=== PATIENT | female | born 1955 | race Caucasian/White ===

== ENCOUNTER 2019-02-19 14:38 | Inpatient (IN) | payer OTHER, MEDICAID | END 2019-02-23 17:00 | disposition home or self-care (01) | LOC: ER 14:38 → TELE 17:52 → TELE-WESTW 20:25 | DX: I48.0 Paroxysmal atrial fibrillation (principal); E44.1 Mild protein-calorie malnutrition; I10 Essential (primary) hypertension; J44.9 Chronic obstructive pulmonary disease, unspecified; R74.8 Abnormal levels of other serum enzymes; K40.90 Unilateral inguinal hernia, without obstruction or gangrene, not specified as recurrent; G89.29 Other chronic pain; M54.5 Low back pain; E03.9 Hypothyroidism, unspecified; Z79.891 Long term (current) use of opiate analgesic; D64.9 Anemia, unspecified ==

== ENCOUNTER 2019-08-07 20:14 | Inpatient (IN) | payer OTHER, MEDICAID ==
[~2019-08-07] VITALS: Ht 160 cm; Wt 22.6 kg
[~2019-08-07 20:14] MED LIST: ALBUAER3 IN; ALEN70TA2 PO; ATO40T PO; BREX1TAB4 PO; CIPR-217 PO; CYCL5TAB PO; ESCI20TA PO; FLUT250M2 INH; GABA-339 PO; HYDR-531 PO; HYDR12.56 PO; IMI25T PO; LEVO50TA7 PO; LISI-646 PO; MELO1TAB56 PO; MONT10TA34 PO; OXYB15TA12 PO; ROPI2TAB31 PO; TIOTCAP IN; TRAZ100T2 PO
[2019-08-07] MEDS ORDERED: ONDANSETRON HCL 4 MG/2 ML VIAL IV ONE (21:00)
[2019-08-07] MEDS ORDERED: MORPHINE SULFATE 4 MG/ML SYR/VIAL IV ONE (21:00)
[2019-08-07 21:14] LABS: Basophils # (auto) 0.1 uL; Basophils % (auto) 0.9 % (0.0-2.0); Eosinophils # (auto) 0.1 uL; Eosinophils % (auto) 0.9 % (0.0-7.0); Hematocrit 46.7 % (36.0-46.0); Hemoglobin 15.4 g/dL (12.2-16.2); Lymphocytes # (auto) 2.1 uL; Lymphocytes % (auto) 13.3 % (10.0-50.0); Mean Corpuscular Hemoglobin 27.4 pg (28.0-32.0); Mean Corpuscular Volume 83.2 fL (80.0-100.0); Monocytes # (auto) 1.2 uL; Monocytes % (auto) 7.5 % (0.0-12.0); Neutrophils # (auto) 12.4 uL; Neutrophils % (auto) 77.4 % (37.0-80.0); Nucleated Red Blood Cells % 0.1 %; Platelet Count (auto) 431 10^3/uL (140-450); Red Blood Cells 5.61 10^6/uL (4.0-5.20); Red Cell Distribution Width 17.9 % (11.8-14.3)
[2019-08-07 21:33] LABS: Albumin 3.7 g/dL (3.4-5.0); Potassium 3.7 mmol/L (3.5-5.1)
[2019-08-07 21:37] LABS: BUN/Creatinine Ratio 21.4; Bilirubin, Total 0.6 mg/dL (0.2-1.0)
[2019-08-07] MEDS ORDERED: SODIUM CHLORIDE 0.9% 1,000 ML IV SCH (22:31)
[2019-08-07] MEDS ORDERED: cefTRIAXone 1GM/50ML D5W 50 ML IV ONE (22:45)
[2019-08-07] MEDS ORDERED: FAMOTIDINE (10MG/ML) 2ML VL IV ONE (22:45)
[2019-08-07] MEDS ORDERED: MORPHINE SULF INJ 2 MG/ML SYRINGE 1ML IV PRN (22:45)
[2019-08-07] MEDS ORDERED: ALBUTEROL SULF 2.5 MG/0.5ML(0.5%) NEB SOLN NEB PRN (22:45)
[2019-08-07] MEDS ORDERED: ONDANSETRON HCL 4 MG/2 ML VIAL IV PRN (22:45)
[2019-08-07] MEDS ORDERED: NITROGLYCERIN 0.4 MG SL TAB SL PRN (22:45)
[2019-08-07 23:28] LABS: INR 0.98 (0.9-1.15); Partial Thromboplastin Time 26.1 sec (23.64-32.05)
--- NOTE | 2019-08-07 23:52 | NUR ---
Respiratory note: PT SEEN DOWN IN ER AT THIS TIME ON RA WITH NO DIFFICULTY IN BREATHING. PT AWAKE AND ALERT. SPO2 95%, HR 87, RR 22. BS CLR/DIM T/O. NO PRN TX INDICATED AT THIS TIME. PT AWARE TO CALL FOR TX'S IF SOB/WHEEZING.
[2019-08-08] VITALS (9 sets, daily range): BP systolic 122–147; BP diastolic 57–78
[2019-08-08] MEDS ORDERED: BENZOCAINE (DENTAL) 20 % SPRAY 60ML MT ONE ×2 (00:09→00:15)
[2019-08-08 00:19] LABS: Urine Bacteria MANY /hpf (None Seen); Urine Blood Negative /uL (Negative); Urine Mucus FEW (None Seen); Urine Specific Gravity 1.027 (1.001-1.035); Urine WBC 63 /hpf (0 - 5)
[2019-08-08] MEDS: MORPHINE SULFATE 4 MG/ML SYR/VIAL IV PRN ×2 (01:04→21:25)
--- NOTE | 2019-08-08 01:25 | NUR ---
ADMITTED PATIENT FROM THE ER, AAOX4. NO DISTRESS NOTED. INTRODUCED MYSELF TO THE PATIENT. ORIENTATION DONE. DENIES ANY PAIN NOW. ABDOMEN IS TENDER. MILD DISTENTION NOTED. RUEDA IS INTACT. NGT IS INTACT. ROUTINE ADMISSION DONE. POCS DISCUSSED WITH PATIENT AND SHOWED UNDERSTANDING. BED KEPT ON LOWEST POSITION. SIDE RAILS UP. CALL LIGHT/ TABLE IN REACH. KEPT COMFORTABLE.
--- NOTE | 2019-08-08 03:00 | NUR ---
PATIENT ACCIDENTALLY PULLED OUT HER NG TUBE IN HER SLEEP. ADVISED PATIENT TO REINSERT TUBE, BUT REFUSED. SHE SAID, SHE WILL WAIT FOR THE GASTRO GRAFFIN THIS AM AND SEE IF THE SBO RESOLVES, AND IF NOT TO ALLOW US TO REINSERT THE NG TUBE. CONSEQUENCES EXPLAINED, BUT STILL REFUSE. WILL NOTIFY
--- NOTE | 2019-08-08 05:15 | NUR ---
SPOKE WITH PATIENT, AGAIN REGARDING NGT INSERTION, BUT REFUSED AND SHE SAID TO SPEAK WITH THE MD FIRST AFTER THE ABDOMINAL SERIES THIS AM. DENIES NAUSEA/ VOMITING.
[2019-08-08 06:04] LABS: Basophils # (auto) 0 uL; Basophils % (auto) 0.2 % (0.0-2.0); Eosinophils # (auto) 0.1 uL; Eosinophils % (auto) 0.5 % (0.0-7.0); Hematocrit 39.5 % (36.0-46.0); Hemoglobin 12.9 g/dL (12.2-16.2); Lymphocytes # (auto) 1.1 uL; Lymphocytes % (auto) 6.9 % (10.0-50.0); Mean Corpuscular Hemoglobin 27.4 pg (28.0-32.0); Mean Corpuscular Hgb Conc. 32.7 g/dL (32.0-36.0); Mean Corpuscular Volume 83.8 fL (80.0-100.0); Monocytes # (auto) 1.7 uL; Monocytes % (auto) 10.4 % (0.0-12.0); Neutrophils # (auto) 13.4 uL; Platelet Count (auto) 346 10^3/uL (140-450); Red Blood Cells 4.71 10^6/uL (4.0-5.20); Red Cell Distribution Width 17.7 % (11.8-14.3); White Blood Cell 16.3 10^3/uL (4.4-10.8)
--- NOTE | 2019-08-08 06:18 | NUR ---
ON BED, AWAKE. STABLE. NO DISTRESS NOTED. FOR MORE CARE AND MANAGEMENT.
[2019-08-08 06:20] LABS: BUN/Creatinine Ratio 35.7; Calcium 8.4 mg/dL (8.5-10.1); Potassium 3.4 mmol/L (3.5-5.1)
--- NOTE | 2019-08-08 07:30 | NUR ---
Opening Shift Note Assumed care of patient. Pt resting in bed with even and non-labored respirations. Bed locked and in lowest position. will continue to monitor for changes Q1hr and PRN.
[2019-08-08] MEDS: FUROSEMIDE 20 MG/2 ML VIAL IV SCH (09:24)
[2019-08-08] MEDS: cefTRIAXone 1GM/50ML D5W 50 ML IV SCH (09:24)
[2019-08-08] MEDS: FAMOTIDINE (10MG/ML) 2ML VL IV SCH (09:24)
--- NOTE | 2019-08-08 10:15 | NUR ---
PT OFF UNIT FOR PROCEDURE
[2019-08-08] MEDS ORDERED: GASTROGRAFIN 120 ML SOL ONE (10:35)
--- NOTE | 2019-08-08 11:41 | NUR ---
PT ARRIVAL BACK TO UNIT
--- NOTE | 2019-08-08 11:55 | NUR ---
Respiratory note: PT ASSESSED FOR PRN MED NEB TX. NO SOB NOTED. PT IS BREATHING COMFORTABLY ON 2L NC. HR 69, RR 14, POX 100%. B/S ARE CLEAR AND DECREASED THROUGHOUT.
[2019-08-08] MEDS ORDERED: POTASSIUM CHL 20MEQ/100ML 100 ML IV ONE (13:30)
[2019-08-08] MEDS ORDERED: ALBUTEROL SULF 2.5 MG/0.5ML(0.5%) NEB SOLN NEB PRN (13:30)
[2019-08-08] MEDS ORDERED: IPRATROPIUM BROM 0.5 MG/2.5ML INH SOL NEB PRN (13:30)
[2019-08-08] MEDS: SODIUM CHLORIDE 0.9% 1,000 ML IV SCH (14:05)
--- NOTE | 2019-08-08 14:15 | NUR ---
RONDA GUERRIER RE: NPO STATUS AND PT REFUSING IV POTASSIUM. AWAITING CALL BACK.
--- NOTE | 2019-08-08 16:52 | NUR ---
RONDA GUERRIER RE: NPO STATUS AND PT REFUSING IV POTASSIUM. AWAITING CALL BACK.
--- NOTE | 2019-08-08 18:45 | NUR ---
ON-CALL HOSPITALIST RETURNED PAGE RE: POTASSIUM. NEW ORDERS RECEIVED.
[2019-08-08] MEDS ORDERED: POTASSIUM CHL 20 Meq TABLET PO ONE (19:00)
--- NOTE | 2019-08-08 19:30 | NUR ---
Opening Shift Note Assumed care of patient, awake and alert. No S/S of distress/SOB or pain. Bed side commode within reach. RFA IV non patent, patient states discomfort, mild swelling localized to site noted, will D/C IV. Instructed on POC and to call for assist PRN, will continue to monitor for changes Q1hr and PRN.
--- NOTE | 2019-08-08 20:16 | NUR ---
IV insertion IV access obtained, via clean sterile technique by inserting 22 gauge catheter at right hand after 1 attempt. IV secured properly. No trauma to site. Patient tolerated well. Normal saline running at 65mls/hr as per order.
--- NOTE | 2019-08-08 20:17 | NUR ---
IV removal RFA IV DC'd with clean sterile technique, catheter fully intact. Pressure dressing applied to site. Patient tolerated well.
--- NOTE | 2019-08-08 20:20 | NUR ---
PATIENT VERBALIZES ABDOMINAL PAIN, DESCRIBED SHARP AND NON RADIATING, RATES IT 7/10 ON PAIN SCALE. WILL ASSESS AND MEDICATE PER ORDER.
--- NOTE | 2019-08-08 20:35 | NUR ---
PATIENT INCONTINENT OF BOWEL PATIENT STATES "I CAN WALK AND GET UP TO COMMODE JUST FINE, BUT CANT SIT THERE TOO LONG, AND ITS HARD WITH ALL THESE WIRES ON ME". PATIENT ENCOURAGED TO CALL FOR ASSISTANCE SOON URGE STARTS FOR BED SIDE COMMODE ASSISTANCE. PATIENT EDUCATED ON SKIN BREAKDOWN PREVENTION. PATIENT VERBALIZES UNDERSTANDING. PATIENT AMBULATED TO RESTROOM WITH STAND BY ASSIST TO CLEAN SELF. BED LINENS CHANGED. WILL CONTINUE TO MONITOR
--- NOTE | 2019-08-09 02:00 | NUR ---
PATIENT C/O IV SITE DISCOMFORT. MILD SWELLING NOTED. FLUIDS STOPPED. WILL DC IV/ ELEVATE EXTREMITY.
--- NOTE | 2019-08-09 02:10 | NUR ---
IV insertion IV access obtained, via clean sterile technique by inserting 22 gauge catheter at RIGHT FOREARM. IV secured properly. No trauma to site. Patient tolerated well.
[2019-08-09] MEDS: MORPHINE SULFATE 4 MG/ML SYR/VIAL IV PRN ×4 (02:16→21:39)
--- NOTE | 2019-08-09 02:20 | NUR ---
PATIENT REFUSES TO BE RECONNECTED TO IV FLUIDS. STATES SHE FEELS IV DISCOMFORT. IV SITE ASSESSED, FLUSHED WITH NORMAL SALINE. IV PATENT, NO SWELLING NOTED, SITE INTACT. PATIENT EDUCATED ON NEED OF IV HYDRATION. PATIENT CONTINUES TO REFUSE FLUIDS. WILL TRY AGAIN LATER. FLUIDS PAUSED AT THIS MOMENT.
--- NOTE | 2019-08-09 02:43 | NUR ---
A FIB RVR PATIENTS POCKET MAKER READING A FIB WITH VENTRICULAR RATE 128BPM WILL ASSESS PATIENT, EKG, WILL CALL HOSPITALIST
--- NOTE | 2019-08-09 02:45 | NUR ---
PATIENT RESTING IN BED COMFORTABLY, DENIES ANY CHEST PAIN/PALPITATIONS/DISTRESS. VITAL SIGNS: 148/83 BP, 127HR, SPO2 95% ON RA, RR 16BPM EKG COMPLETED AFIB SUSTAINING
--- NOTE | 2019-08-09 03:15 | NUR ---
HOSPITALIST MIKEY AWARE OF RHYTHM EKG REVIEWED AND SIGNED NEW ORDER RECEIVED, READ BACK AND VERIFIED. WILL ENTER AND IMPLEMENT AFIB SUSTAINED AT THIS TIME WITH HR 120BPM
--- NOTE | 2019-08-09 03:30 | NUR ---
PATIENT BACK TO SR 90BPM WILL HOLD CARDIZEM AT THIS TIME
[2019-08-09] MEDS ORDERED: DILTIAZEM HCL 25 MG/5 ML VIAL IV ONE (04:00)
[2019-08-09 04:57] LABS: Basophils # (auto) 0.1 uL; Basophils % (auto) 0.6 % (0.0-2.0); Eosinophils # (auto) 0.3 uL; Hematocrit 33.9 % (36.0-46.0); Hemoglobin 11.2 g/dL (12.2-16.2); Lymphocytes # (auto) 2.3 uL; Lymphocytes % (auto) 26.8 % (10.0-50.0); Mean Corpuscular Hemoglobin 27.7 pg (28.0-32.0); Mean Corpuscular Hgb Conc. 33.1 g/dL (32.0-36.0); Mean Corpuscular Volume 83.7 fL (80.0-100.0); Monocytes # (auto) 0.7 uL; Monocytes % (auto) 8.3 % (0.0-12.0); Neutrophils # (auto) 5.2 uL; Neutrophils % (auto) 61.3 % (37.0-80.0); Platelet Count (auto) 282 10^3/uL (140-450); Red Blood Cells 4.05 10^6/uL (4.0-5.20); Red Cell Distribution Width 17.9 % (11.8-14.3); White Blood Cell 8.5 10^3/uL (4.4-10.8)
[2019-08-09 05:00] VITALS: BP 152/79
[2019-08-09 05:17] LABS: BUN/Creatinine Ratio 31.5; Calcium 7.9 mg/dL (8.5-10.1); Magnesium 1.8 mg/dL (1.6-2.6); Potassium 3.5 mmol/L (3.5-5.1)
--- NOTE | 2019-08-09 06:00 | NUR ---
PATIENT CONTINUES TO REFUSE IV FLUIDS AT THIS TIME.
[2019-08-09] MEDS: SODIUM CHLORIDE 0.9% 1,000 ML IV SCH ×2 (06:01→12:46)
--- NOTE | 2019-08-09 06:36 | NUR ---
PATIENT RESTING IN BED COMFORTABLY, EVEN AND UNLABORED RESPIRATIONS NOTED, NO S/S OF PAIN/ DISTRESS. CALL LIGHT WITHIN REACH.
--- NOTE | 2019-08-09 07:45 | NUR ---
Patient in bed, awake, oriented x4, no acute distress noted. On Delarosa catheter draining light eliz urine. With bedside commode.
--- NOTE | 2019-08-09 08:31 | NUR ---
Patient stated her back, neck, stomach pain level at 7/10 at this time. Morphine Sulf Inj 2 mg given for pain as ordered.
[2019-08-09] MEDS: cefTRIAXone 1GM/50ML D5W 50 ML IV SCH (08:32)
[2019-08-09 09:00] VITALS: BP 155/74
--- NOTE | 2019-08-09 10:30 | NUR ---
Midline Placement: Patient educated on need for midline placement. All risks and benefits explained and all questions and concerns addresses prior to procedure. 18g/10cm midline inserted via RIGHT BASILIC vein using Ultrasound. Sterile technique utilized. Blood return obtained from SINGLE lumen and flushed easily with NS using proper technique. Midline secured with saline lock; biodisc and occlusive dressing applied. Primary RN notified. Midline lot # [id number] .
--- NOTE | 2019-08-09 10:50 | NUR ---
Respiratory note: PT ASSESSED FOR PRN. PT AWAKE, ALERT AND RESPONSIVE. NO DISTRESS, SOB OR WHEEZE AT THIS TIME. PT SP02 95% ON ROOM AIR. NO TREATMENT INDICATED AT THIS TIME. TOLD PT IF BECOMES SOB OR HAS A WHEEZE USE CALL LIGHT AND I WILL BE PAGED TO HER ROOM.
--- NOTE | 2019-08-09 11:02 | NUR ---
Dr. Castro came over.
--- NOTE | 2019-08-09 11:15 | NUR ---
Dr. Castro at bedside. ordered Clear Liquid Diet. Patient has pending Surgical Consult with Jamila Livingstno
[2019-08-09] MEDS: FAMOTIDINE (10MG/ML) 2ML VL IV SCH (11:31)
[2019-08-09] MEDS: FUROSEMIDE 20 MG/2 ML VIAL IV SCH (11:31)
--- NOTE | 2019-08-09 12:30 | NUR ---
Patient's sister at bedside.
[2019-08-09] MEDS ORDERED: LISINOPRIL 20 MG TAB PO ONE (12:45)
[2019-08-09] MEDS ORDERED: MAGNESIUM SULFATE 1GM/100ML 100 ML IV ONE (12:45)
[2019-08-09] MEDS ORDERED: POTASSIUM CHL 20 Meq TABLET PO ONE (12:45)
[2019-08-09 13:00] VITALS: BP 147/75
--- NOTE | 2019-08-09 15:17 | NUR ---
Surgical Consult called in again for Jamila Livingston Waiting for MD to come over.
[2019-08-09 17:00] VITALS: BP 149/69
--- NOTE | 2019-08-09 17:33 | NUR ---
Patient stared her back pain level at 05/09 at this time. Morphine Sulf Inj 2 mg given for pain as ordered. Addendum: 08/09/19 at 1752 by Cynthia Hines RN stated
--- NOTE | 2019-08-09 19:34 | NUR ---
Opening Shift Note Assumed care of patient, awake and alert oriented x4. No S/S of distress/SOB noted. Bed is in lowest locked position with bed rails up x2 and call light is within reach of the patient. Instructed on POC and to call for assist PRN.
--- NOTE | 2019-08-09 19:57 | NUR ---
Respiratory note: ASSESSMENT FOR PRN MED NEB TX. PT PRESENTING NO DISTRESS AT THIS TIME. HR 75, SPO2 96% ON ROOM AIR, RR 18 B/S DIMINISHED. MED NEB TX NOT INDICATED AT THIS TIME. PT AWARE TO HAVE RT PAGED IF MED NEB TX IS NEEDED, WILL CONTINUE TO MONITOR.
[2019-08-09 22:00] VITALS: BP 139/71
--- NOTE | 2019-08-09 22:22 | NUR ---
DR. TEMPLE AT THE BEDSIDE SPEAKING TO PATIENT.
--- NOTE | 2019-08-09 22:30 | NUR ---
DR TEMPLE CLEARED PATIENT FOR DC. WANTS TO ADVANCE PATIENTS DIET TOLERATED. TO PLACE ORDERS.
--- NOTE | 2019-08-10 01:20 | NUR ---
SWOLLEN UPPER RIGHT EXTREMITY: Patient made this RN aware at this time that upper right extremity is painful to the touch and swollen where right upper arm midline is placed. Disconnected patient from iv fluids. After assessment patients right upper arm is more swollen than the left and tender to the touch. To call and notify hospitalist.
--- NOTE | 2019-08-10 01:25 | NUR ---
Paged hospitalist: Paged hospitalist at the time to update about patients swollen right upper extremity where midline is. Waiting for call back.
--- NOTE | 2019-08-10 01:26 | NUR ---
Patient refusing new IV: Educated patient that we cannot use Midline at this time due to symptoms and that a new IV must be started. Patient refused new Iv stating "No I dont want to be poked anymore.." Educated patient about the need to have an IV for emergency medication access and that pain medications cannot be administered with no working IV access. Patient verbalized understanding.
--- NOTE | 2019-08-10 01:27 | NUR ---
Hospitalist called back: Hospitalist Emil called back and updated him about patients swollen upper arm at the site of the midline. Ordered for an X ray of the upper arm to assess midline placement.
--- NOTE | 2019-08-10 01:30 | NUR ---
CALLED RADIOLOGY: Called radiology regarding stat order for x ray of right upper extremity to assess midline placement. Radiology stated that veins are not visualized in x-rays and that it would be seen better if an ultrasound was done to see veins. To call hospitalist.
--- NOTE | 2019-08-10 01:35 | NUR ---
Hospitalist called back: Hospitalist Emil informed about what radiology stated about x-ray of upper extremity and how veins cannot be visualized with x-ray. Ordered ultra sound of right upper extremity and to monitor the patient. To place orders and call radiology.
--- NOTE | 2019-08-10 01:40 | NUR ---
Called Radiology: Updated them of stat order for ultrasound for the patients right upper extremity. Stated that edger technician is not available at this time, only industrial relations worker extrusion technician. Connected through PBX and spoke with industrial relations worker radiologist extrusion technician.
[2019-08-10 05:31] VITALS: BP 144/72
[2019-08-10 07:00] LABS: Basophils # (auto) 0.1 uL; Basophils % (auto) 0.9 % (0.0-2.0); Eosinophils # (auto) 0.3 uL; Eosinophils % (auto) 3.9 % (0.0-7.0); Hematocrit 39.8 % (36.0-46.0); Lymphocytes % (auto) 24.8 % (10.0-50.0); Mean Corpuscular Hemoglobin 27.5 pg (28.0-32.0); Mean Corpuscular Hgb Conc. 32.8 g/dL (32.0-36.0); Mean Corpuscular Volume 84.1 fL (80.0-100.0); Monocytes # (auto) 0.9 uL; Monocytes % (auto) 11.9 % (0.0-12.0); Neutrophils # (auto) 4.6 uL; Neutrophils % (auto) 58.5 % (37.0-80.0); Platelet Count (auto) 313 10^3/uL (140-450); Red Blood Cells 4.74 10^6/uL (4.0-5.20); Red Cell Distribution Width 17.5 % (11.8-14.3); White Blood Cell 7.9 10^3/uL (4.4-10.8)
[2019-08-10 07:16] LABS: BUN/Creatinine Ratio 9.7; Calcium 8.7 mg/dL (8.5-10.1); Magnesium 2.4 mg/dL (1.6-2.6); Potassium 3.7 mmol/L (3.5-5.1)
--- NOTE | 2019-08-10 07:30 | NUR ---
CLOSING NOTE: Patient is resting in bed with breaths even and unlabored. No s/s of distress sob noted. Right upper extremity swelling down and soft to touch. Ultrasound of right upper extremity negative for DTV. Endorsed care to day shift nurse.
[2019-08-10] MEDS: SODIUM CHLORIDE 0.9% 1,000 ML IV SCH (08:45)
[2019-08-10] MEDS: cefTRIAXone 1GM/50ML D5W 50 ML IV SCH ×2 (09:00→10:26)
[2019-08-10 09:25] VITALS: BP 153/71
--- NOTE | 2019-08-10 10:25 | NUR ---
Dr. Castro at bedside. ordered Soft Diet 2 GM Na, when patient tolerates for lunch, patient will be discharged home today.
[2019-08-10] MEDS: FUROSEMIDE 20 MG/2 ML VIAL IV SCH (10:26)
[2019-08-10] MEDS: FAMOTIDINE (10MG/ML) 2ML VL IV SCH (10:26)
--- NOTE | 2019-08-10 10:33 | NUR ---
Respiratory note: ASSESSED PT FOR PRN MEDNEB TX. HR 88, RR 16, POX 98% ON ROOM AIR. BREATH SOUNDS CLEAR THROUGHOUT. NO S/S OF RESPIRATORY DISTRESS. MEDNEB TX NOT INDICATED AT THIS TIME. ADVISED PT TO CALL FOR RT IF NEEDED.
--- NOTE | 2019-08-10 11:30 | NUR ---
Delarosa catheter removed. About 850 ml of clear, yellowish urine collected from the Delarosa catheter.
[2019-08-10] MEDS ORDERED: CIPR-217 PO (12:51)
--- NOTE | 2019-08-10 13:55 | NUR ---
Dr. Castro called back. ordered Cipro 500 mg PO one time dose. Dr. Castro made aware patient's heart rate goes into 150s to 160s. Patient had AICD placement history.
[2019-08-10 14:10] VITALS: BP 137/60
[2019-08-10] MEDS ORDERED: CIPROFLOXACIN HCL 500 MG TAB PO ONE (14:15)
--- NOTE | 2019-08-10 14:15 | NUR ---
Patient stated she will wait for her [id number] to pick her up at the [facility].
--- NOTE | 2019-08-10 14:48 | NUR ---
Patient came from the bathroom, stated she had a bowel movement.
--- NOTE | 2019-08-10 15:10 | NUR ---
Discharge instructions given as ordered. Encourage to follow up with PMD as instructed. All questions and concerns addressed. Patient verbalized understanding. Medication reconciliation form completed and copy given to patient. IV removed with catheter intact, pressure dressing applied, Delarosa catheter removed. Telemetry unit returned to ICU. Patient taken to vehicle via wheelchair with all personal belongings, accompanied by staff. No distress noted at time of departure.
== END 2019-08-10 15:05 | disposition home or self-care (01) | DRG 872 ==
LOC: ER 20:26 → TELE 20:27 → TELE-WESTW 23:32
PROVIDERS: ADMIT Nurse Practitioner; ATTEND Internal Medicine
DX: A41.9 Sepsis, unspecified organism (principal); N39.0 Urinary tract infection, site not specified; I50.22 Chronic systolic (congestive) heart failure; R18.8 Other ascites; K40.30 Unilateral inguinal hernia, with obstruction, without gangrene, not specified as recurrent; K80.20 Calculus of gallbladder without cholecystitis without obstruction; J44.9 Chronic obstructive pulmonary disease, unspecified; E78.5 Hyperlipidemia, unspecified; I25.10 Atherosclerotic heart disease of native coronary artery without angina pectoris; I11.0 Hypertensive heart disease with heart failure; I48.0 Paroxysmal atrial fibrillation; F17.210 Nicotine dependence, cigarettes, uncomplicated; E03.9 Hypothyroidism, unspecified; K57.30 Diverticulosis of large intestine without perforation or abscess without bleeding; Z88.6 Allergy status to analgesic agent; Z90.710 Acquired absence of both cervix and uterus; Z95.810 Presence of automatic (implantable) cardiac defibrillator; Z98.51 Tubal ligation status; Z82.49 Family history of ischemic heart disease and other diseases of the circulatory system; Z83.3 Family history of diabetes mellitus; Z80.1 Family history of malignant neoplasm of trachea, bronchus and lung; Z80.8 Family history of malignant neoplasm of other organs or systems; Z79.899 Other long term (current) drug therapy
CPT/HCPCS: 36415; 74176; 74250; 80048; 80053; 81001; 83690; 83735; 85025; 85610; 85730; 87040; 87086; 87088; 87186; 93005; 93971; 94761; 96361; 96365; 96375; G0378; J0696; J2405; J3480; J3490

== ENCOUNTER 2019-09-15 15:27 | Emergency (ER) | payer OTHER, MEDICAID ==
[~2019-09-15] VITALS: Ht 154.9 cm; Wt 38.6 kg
[2019-09-15 16:04] LABS: Basophils # (auto) 0.1 uL; Eosinophils # (auto) 0.1 uL; Eosinophils % (auto) 1.2 % (0.0-7.0); Hematocrit 36.9 % (36.0-46.0); Hemoglobin 12.2 g/dL (12.2-16.2); Lymphocytes # (auto) 1.9 uL; Mean Corpuscular Hemoglobin 27.2 pg (28.0-32.0); Mean Corpuscular Hgb Conc. 33.1 g/dL (32.0-36.0); Mean Corpuscular Volume 82.2 fL (80.0-100.0); Monocytes % (auto) 12.1 % (0.0-12.0); Neutrophils # (auto) 5.3 uL; Neutrophils % (auto) 62.7 % (37.0-80.0); Nucleated Red Blood Cells % 0.1 %; Platelet Count (auto) 353 10^3/uL (140-450); Red Blood Cells 4.49 10^6/uL (4.0-5.20); Red Cell Distribution Width 17.6 % (11.8-14.3); White Blood Cell 8.4 10^3/uL (4.4-10.8)
[2019-09-15 16:20] LABS: Albumin 2.7 g/dL (3.4-5.0); Anion Gap 5 (5-15); Blood Urea Nitrogen 20 mg/dL (7-18); Calcium 8.3 mg/dL (8.5-10.1); Carbon Dioxide 30 mmol/L (21-32); Chloride 98 mmol/L (98-107); Glucose 116 mg/dL (74-106); Potassium 3.2 mmol/L (3.5-5.1); Sodium 133 mmol/L (136-145)
[2019-09-15 16:22] LABS: Alanine Aminotransferase 22 U/L (13-56); Aspartate Aminotransferase 26 U/L (15-37); BUN/Creatinine Ratio 19.2; GFR African American 69 mL/min; GFR Non-African American 57 mL/min
[2019-09-15 16:27] LABS: Alkaline Phosphatase 84 U/L (45-117); Bilirubin, Total 0.2 mg/dL (0.2-1.0); Total Protein 6.3 g/dL (6.4-8.2)
[2019-09-15] MEDS ORDERED: SODIUM CHLORIDE 0.9% 1,000 ML IV ONE ×2 (16:50)
[2019-09-15 18:39] VITALS: BP 114/55
== END 2019-09-15 18:49 | disposition home or self-care (01) ==
LOC: EDBD 15:27 → ER 15:27
DX: K80.20 Calculus of gallbladder without cholecystitis without obstruction (principal); E44.0 Moderate protein-calorie malnutrition; I12.9 Hypertensive chronic kidney disease with stage 1 through stage 4 chronic kidney disease, or unspecified chronic kidney disease; N18.9 Chronic kidney disease, unspecified; J44.9 Chronic obstructive pulmonary disease, unspecified; E78.5 Hyperlipidemia, unspecified; F17.210 Nicotine dependence, cigarettes, uncomplicated; I25.2 Old myocardial infarction; Z98.51 Tubal ligation status; Z90.710 Acquired absence of both cervix and uterus; Z95.0 Presence of cardiac pacemaker; Z68.1 Body mass index [BMI] 19.9 or less, adult; Z88.6 Allergy status to analgesic agent; Z79.899 Other long term (current) drug therapy
CPT/HCPCS: 36415; 74176; 80053; 84484; 85025; 93005

== ENCOUNTER → 2019-12-26 | Outpatient (CLI) | payer OTHER, MEDICAID ==
[~2019-12-26] MED LIST changes: -CIPR-217 PO; +CIPR500T4 PO; -TRAZ100T2 PO; +TRAZ100T3 PO
[2019-12-26 08:22] LABS: Basophils # (auto) 0.1 uL; Eosinophils # (auto) 0.1 uL; Lymphocytes # (auto) 1.7 uL; Monocytes # (auto) 0.8 uL; Neutrophils # (auto) 4.4 uL
[2019-12-26 08:23] LABS: Basophils % (auto) 1.2 % (0.0-2.0); Hematocrit 39.8 % (36.0-46.0); Hemoglobin 13.4 g/dL (12.2-16.2); Lymphocytes % (auto) 24.5 % (10.0-50.0); Mean Corpuscular Hemoglobin 27.5 pg (28.0-32.0); Mean Corpuscular Hgb Conc. 33.6 g/dL (32.0-36.0); Mean Corpuscular Volume 81.9 fL (80.0-100.0); Neutrophils % (auto) 62.3 % (37.0-80.0); Platelet Count (auto) 303 10^3/uL (140-450); Red Blood Cells 4.86 10^6/uL (4.0-5.20); White Blood Cell 7.1 10^3/uL (4.4-10.8)
[2019-12-26 08:39] LABS: Albumin 3.4 g/dL (3.4-5.0); Calcium 9.2 mg/dL (8.5-10.1); Potassium 4.1 mmol/L (3.5-5.1)
[2019-12-26 08:43] LABS: Urine Bacteria FEW /hpf (None Seen); Urine Blood Negative /uL (Negative); Urine Specific Gravity 1.011 (1.001-1.035); Urine WBC 3 /hpf (0 - 5)
[2019-12-26 08:45] LABS: Bilirubin, Total 0.4 mg/dL (0.2-1.0); Total Protein 7.2 g/dL (6.4-8.2)
== END | disposition home or self-care (01) ==
LOC: LAB 07:59
PROVIDERS: ATTEND Physician Assistant
DX: I11.0 Hypertensive heart disease with heart failure (principal); I50.9 Heart failure, unspecified; E03.9 Hypothyroidism, unspecified; M79.7 Fibromyalgia; Z78.9 Other specified health status
CPT/HCPCS: 36415; 80053; 80061; 81001; 84443; 85025

== ENCOUNTER → 2020-02-28 | Outpatient (CLI) | payer OTHER, MEDICAID | END | disposition home or self-care (01) | LOC: LAB 16:00 | PROVIDERS: ATTEND Urology | DX: N39.0 Urinary tract infection, site not specified (principal) | CPT/HCPCS: 87086 ==

== ENCOUNTER → 2020-03-20 | Outpatient (CLI) | payer OTHER, MEDICAID ==
[2020-03-21 07:03] LABS: Urine Bacteria NONE SEEN /hpf (None Seen); Urine Blood Negative /uL (Negative); Urine Specific Gravity 1.017 (1.001-1.035); Urine WBC <1 /hpf (0 - 5)
== END | disposition home or self-care (01) ==
LOC: LAB 17:00
PROVIDERS: ATTEND Nurse Practitioner Family
DX: N39.0 Urinary tract infection, site not specified (principal)
CPT/HCPCS: 81001; 87086

== ENCOUNTER → 2020-04-24 | Outpatient (CLI) | payer OTHER, MEDICAID | END | disposition home or self-care (01) | LOC: LAB 15:36 | PROVIDERS: ATTEND Urology | DX: N39.0 Urinary tract infection, site not specified (principal) | CPT/HCPCS: 87086 ==

== ENCOUNTER 2020-05-26 16:30 | Inpatient (IN) | payer OTHER, MEDICAID ==
[~2020-05-26] VITALS: Ht 154.9 cm; Wt 47.4 kg
[2020-05-26] MEDS ORDERED: SODIUM CHLORIDE 0.9% 1,000 ML IVB ONE (17:04)
[2020-05-26 17:49] LABS: Basophils # (auto) 0.1 10 ^3/uL (0-0.2); Basophils % (auto) 0.5 % (0.0-2.0); Eosinophils # (auto) 0.2 10 ^3/uL (0-0.8); Eosinophils % (auto) 1.6 % (0.0-7.0); Hematocrit 26.9 % (36.0-46.0); Lymphocytes # (auto) 2.4 10 ^3/uL (0.4-5.4); Lymphocytes % (auto) 24.5 % (10.0-50.0); Mean Corpuscular Hemoglobin 30.8 pg (28.0-32.0); Mean Corpuscular Hgb Conc. 33.5 g/dL (32.0-36.0); Mean Corpuscular Volume 91.9 fL (80.0-100.0); Monocytes % (auto) 10.6 % (0.0-12.0); Neutrophils # (auto) 6.1 10 ^3/uL (1.6-8.6); Neutrophils % (auto) 62.8 % (37.0-80.0); Platelet Count (auto) 244 10^3/uL (140-450); Red Blood Cells 2.92 10^6/uL (4.0-5.20); Red Cell Distribution Width 17.2 % (11.8-14.3); White Blood Cell 9.8 10^3/uL (4.4-10.8)
[2020-05-26 18:00] LABS: Anion Gap 4 (5-15); Blood Urea Nitrogen 52 mg/dL (7-18); Calcium 8.6 mg/dL (8.5-10.1); Carbon Dioxide 27 mmol/L (21-32); Chloride 108 mmol/L (98-107); Glucose 67 mg/dL (74-106); Magnesium 2.6 mg/dL (1.6-2.6); Potassium 4.4 mmol/L (3.5-5.1); Sodium 139 mmol/L (136-145)
[2020-05-26 18:07] LABS: Alanine Aminotransferase 20 U/L (13-56); Alkaline Phosphatase 69 U/L (45-117); Aspartate Aminotransferase 16 U/L (15-37); BUN/Creatinine Ratio 49.1; Bilirubin, Total 0.2 mg/dL (0.2-1.0); GFR African American 67 mL/min; GFR Non-African American 55 mL/min; Total Protein 5.9 g/dL (6.4-8.2)
[2020-05-26 18:42] LABS: INR > 8.0 (0.9-1.15); Partial Thromboplastin Time 71.4 sec (23.64-32.05)
[2020-05-26 22:25] LABS: Urine Bacteria NONE SEEN /hpf (None Seen); Urine Blood Negative /uL (Negative); Urine Specific Gravity 1.025 (1.001-1.035); Urine WBC 1 /hpf (0 - 5)
[2020-05-27] VITALS (17 sets, daily range): BP systolic 104–142; BP diastolic 36–85
[2020-05-27] MEDS ORDERED: PHYTONADIONE (VIT K)10 MG/ML 1ML VIAL SUBCUT ONE ×2 (00:30→13:00)
[2020-05-27] MEDS ORDERED: HYDROcodone-ACET 5/325MG TAB PO PRN (00:45)
[2020-05-27] MEDS ORDERED: ONDANSETRON HCL 4 MG/2 ML VIAL IV PRN (00:45)
[2020-05-27] MEDS ORDERED: MORPHINE SULF INJ 2 MG/ML SYRINGE 1ML IV PRN (00:45)
[2020-05-27] MEDS ORDERED: DOCUSATE SOD 100 MG CAP PO PRN (00:45)
[2020-05-27] MEDS ORDERED: ALBUTEROL SULF 2.5 MG/0.5ML(0.5%) NEB SOLN NEB PRN (00:45)
[2020-05-27] MEDS ORDERED: IPRATROPIUM BROM 0.5 MG/2.5ML INH SOL NEB PRN (00:45)
[2020-05-27] MEDS ORDERED: ACETAMINOPHEN 325 MG TAB PO PRN (00:45)
--- NOTE | 2020-05-27 01:20 | NUR ---
Respiratory note: PT SEEN AND ASSESSED FOR PRN MED NEB TX AT 0120. TREATMENT IS NOT INDICATED AT THIS TIME, NO RESPIRATORY DISTRESS NOTED. HR 73 RR 16 SP02 97% ON ROOM AIR.
[2020-05-27] MEDS: SODIUM CHLORIDE 0.9% 1,000 ML IV SCH ×5 (02:55→22:31)
--- NOTE | 2020-05-27 07:00 | NUR ---
Opening Shift Note. Received report on the patient. Awake lying in bed. Patient shows no signs of distress at this time. Discussed plan of care with the patient. Bed in lowest position, side rails up x2, and the call light is within reach.
--- NOTE | 2020-05-27 07:06 | NUR ---
Respiratory note: ASSESSED PT FOR PRN MED NEB AT THIS TIME, PT DENIES SOB AT THIS TIME, NO RESP DISTRESS NOTED, NO TX INDICATED. PULSE OX 98% ON RA, HR 85, RR 16, BILATERAL BS CLEAR.
[2020-05-27] MEDS: ATORVASTATIN 20 MG TAB PO SCH (10:59)
[2020-05-27] MEDS: OXYBUTYNIN CHL 5 MG TAB PO SCH ×2 (10:59→21:19)
[2020-05-27] MEDS: LEVOTHYROXINE SODIUM 50 MCG TAB PO SCH (11:00)
[2020-05-27 11:08] LABS: Basophils % (auto) 0.5 % (0.0-2.0); Mean Corpuscular Hgb Conc. 34.1 g/dL (32.0-36.0); Mean Corpuscular Volume 92.2 fL (80.0-100.0)
[2020-05-27 11:15] LABS: Basophils # (auto) 0 10 ^3/uL (0-0.2); Eosinophils # (auto) 0.2 10 ^3/uL (0-0.8); Eosinophils % (auto) 2.3 % (0.0-7.0); Hematocrit 20.2 % (36.0-46.0); Lymphocytes # (auto) 1.6 10 ^3/uL (0.4-5.4); Lymphocytes % (auto) 22.9 % (10.0-50.0); Mean Corpuscular Hemoglobin 31.5 pg (28.0-32.0); Monocytes # (auto) 0.5 10 ^3/uL (0-1.3); Monocytes % (auto) 7.7 % (0.0-12.0); Neutrophils # (auto) 4.6 10 ^3/uL (1.6-8.6); Neutrophils % (auto) 66.6 % (37.0-80.0); Platelet Count (auto) 196 10^3/uL (140-450); Red Blood Cells 2.19 10^6/uL (4.0-5.20); White Blood Cell 6.9 10^3/uL (4.4-10.8)
[2020-05-27 11:16] LABS: Hemoglobin 6.9 g/dL (12.2-16.2)
[2020-05-27 11:29] LABS: Calcium 7.3 mg/dL (8.5-10.1); Potassium 3.8 mmol/L (3.5-5.1)
[2020-05-27 11:31] LABS: BUN/Creatinine Ratio 51.6
--- NOTE | 2020-05-27 11:33 | NUR ---
Informed MD that patient's Hgb was 6.9. No new orders.
[2020-05-27] MEDS ORDERED: diphenhdrAMINE HCL 25 MG CAP PO PRN (12:00)
[2020-05-27] MEDS ORDERED: ACETAMINOPHEN 500 MG TAB PO ONE (12:00)
[2020-05-27] MEDS ORDERED: PANTOPRAZOLE 40 MG/10 ML VIAL INJ IV ONE (13:00)
[2020-05-27] MEDS ORDERED: OPTISON 3ml Vial for INJ IV ONE (14:39)
--- NOTE | 2020-05-27 15:07 | NUR ---
Dr Mag Wilhelm at bedside. New orders received.
--- NOTE | 2020-05-27 17:39 | NUR ---
PT VERY WEAK AND TIRED. ATTEMPT P.T. TOMORROW.
[2020-05-27] MEDS: traZODone HCL 50 MG TAB PO SCH (18:08)
--- NOTE | 2020-05-27 19:45 | NUR ---
Opening Shift Note Assumed care of patient, awake and alert. No S/S of distress/SOB or pain. Instructed on POC and to call for assist PRN, will continue to monitor for changes Q1hr and PRN.
--- NOTE | 2020-05-27 19:52 | NUR ---
Blood transfusion first unit started and finished at 2200 with reaction noted.
[2020-05-27] MEDS: GABAPENTIN 300 MG CAP PO SCH (21:19)
--- NOTE | 2020-05-27 22:52 | NUR ---
Second unit of blood packed red cell transfusion started and finished at 0115 of 05/28/20 without reaction noted.
[2020-05-28] VITALS (8 sets, daily range): BP systolic 103–132; BP diastolic 46–74
[2020-05-28] MEDS: SODIUM CHLORIDE 0.9% 1,000 ML IV SCH ×5 (01:31→21:31)
[2020-05-28 05:26] LABS: Basophils # (auto) 0 10 ^3/uL (0-0.2); Basophils % (auto) 0.5 % (0.0-2.0); Eosinophils # (auto) 0.1 10 ^3/uL (0-0.8); Hematocrit 24.6 % (36.0-46.0); Hemoglobin 8.6 g/dL (12.2-16.2); Lymphocytes # (auto) 1.4 10 ^3/uL (0.4-5.4); Lymphocytes % (auto) 20.6 % (10.0-50.0); Mean Corpuscular Hemoglobin 32.2 pg (28.0-32.0); Mean Corpuscular Volume 91.9 fL (80.0-100.0); Monocytes # (auto) 0.8 10 ^3/uL (0-1.3); Monocytes % (auto) 10.9 % (0.0-12.0); Neutrophils # (auto) 4.6 10 ^3/uL (1.6-8.6); Platelet Count (auto) 157 10^3/uL (140-450); Red Blood Cells 2.68 10^6/uL (4.0-5.20); Red Cell Distribution Width 15.4 % (11.8-14.3); White Blood Cell 6.9 10^3/uL (4.4-10.8)
[2020-05-28 05:40] LABS: INR 1.18 (0.9-1.15); Partial Thromboplastin Time 28.9 sec (23.64-32.05)
[2020-05-28 05:50] LABS: Potassium 3.9 mmol/L (3.5-5.1)
[2020-05-28 05:56] LABS: Albumin 2.5 g/dL (3.4-5.0); Bilirubin, Total 0.6 mg/dL (0.2-1.0); Calcium 7.5 mg/dL (8.5-10.1); Total Protein 5.2 g/dL (6.4-8.2)
--- NOTE | 2020-05-28 07:31 | NUR ---
Care report given to Mari Haddad, patient is resting NPO after clear liquid breakfast.
[2020-05-28] MEDS: ATORVASTATIN 20 MG TAB PO SCH (09:31)
[2020-05-28] MEDS: LEVOTHYROXINE SODIUM 50 MCG TAB PO SCH (09:31)
[2020-05-28] MEDS: OXYBUTYNIN CHL 5 MG TAB PO SCH ×2 (09:31→21:46)
[2020-05-28] MEDS ORDERED: PANTOPRAZOLE 40 MG/10 ML VIAL INJ IV SCH (10:00)
[2020-05-28] MEDS: PANTOPRAZOLE 40 MG/10 ML VIAL INJ IV SCH ×2 (11:30→21:45)
--- NOTE | 2020-05-28 11:34 | NUR ---
Dr Rossi at bedside. New orders received.
[2020-05-28] MEDS ORDERED: METOPROLOL TARTRATE 1MG/1ML-5ML VIAL IV ONE (11:45)
[2020-05-28] MEDS ORDERED: diphenhdrAMINE HCL 50 MG/1 ML VL ONE (12:20)
[2020-05-28] MEDS ORDERED: SODIUM CHLORIDE LOCK 10 ML ONE (12:20)
[2020-05-28] MEDS ORDERED: LIDOCAINE VISCOUS 2% 15ML UD ONE (12:20)
--- NOTE | 2020-05-28 12:39 | NUR ---
Patient down to OR. No signs of distress at this time.
[2020-05-28] MEDS: MIDAZOLAM HCL 5 MG/ML-1ML VIAL ONE ×2 (12:56→12:59)
[2020-05-28] MEDS: fentaNYL CITRATE 100 MCG/2 ML VL ONE ×3 (12:56→13:01)
--- NOTE | 2020-05-28 14:35 | NUR ---
Respiratory note: Assessed pt for prn medneb tx. HR 82, RR 16, SPO2 96% on room air. Breath sounds clear/dim, pt denies SOB today, no s/s of distress. Medneb tx not indicated at this time. Pt aware to call for RT if needed.
[2020-05-28] MEDS: SUCRALFATE 1 GM/10 ML ORAL SUSP PO SCH ×2 (18:05→21:46)
[2020-05-28] MEDS: traZODone HCL 50 MG TAB PO SCH (18:05)
--- NOTE | 2020-05-28 18:10 | NUR ---
RT NOTE PT WAS SEEN BY RT FOR PRN HHN TX ASSESSMENT. HR 82, RR 16, BS CLEAR/DIM, POX 96% ON ROOM AIR. NO PRN TX INDICATED AT THIS TIME. PT STATES SHE WILL CALL IF TX NEEDED Addendum: 05/28/20 at 1842 by Glendy Harley RT Amended: Links added.
--- NOTE | 2020-05-28 19:30 | NUR ---
Opening Shift Note Assumed care of patient, awake and alert. No S/S of distress/SOB or pain. Instructed on POC and to call for assist PRN, patient verbalized understanding. Safety precaution in place, call light within reach, will continue to monitor for changes Q1hr and PRN.
[2020-05-28] MEDS: GABAPENTIN 300 MG CAP PO SCH (21:46)
--- NOTE | 2020-05-28 22:35 | NUR ---
Patient's HR in the 140's-150's, no complains of chest pain, V/S taken, will page hospitalist
--- NOTE | 2020-05-28 23:00 | NUR ---
Paged hospitalist and spoke to CAROL Stein, updated on patient's status and reason for call. Received order to give Digoxin IV (see emar), and may repeat as needed. Acknowledged and read back, will carry out order
[2020-05-28] MEDS ORDERED: DIGOXIN (250MCG/ML) 2 ML AMPULE IV ONE (23:15)
--- NOTE | 2020-05-29 00:50 | NUR ---
Patient's HR still in the 150's after 2 doses of Digoxin, EKG done revealing Sinus Tachy and V/S taken BP 123/54, HR 150's, O2 Sat 100% on 2 Lpm/NC, no complains of chest pain, will page hospitalist for updates
[2020-05-29] MEDS ORDERED: dilTIAZem 25 MG/5 ML VIAL IV ONE (01:00)
--- NOTE | 2020-05-29 01:00 | NUR ---
Spoke to hospitalist Emil and updated on patient's status and reason for call. Received order to give Cardizem IV (see emar). Acknowledged and read back, will carry out order
--- NOTE | 2020-05-29 02:14 | NUR ---
Patient's HR came down to 120's-130's, not in any distress, will continue to monitor
[2020-05-29] MEDS: SODIUM CHLORIDE 0.9% 1,000 ML IV SCH ×2 (04:16→10:56)
[2020-05-29 05:24] LABS: Basophils # (auto) 0 10 ^3/uL (0-0.2); Basophils % (auto) 0.4 % (0.0-2.0); Eosinophils # (auto) 0.1 10 ^3/uL (0-0.8); Eosinophils % (auto) 0.9 % (0.0-7.0); Hematocrit 23.8 % (36.0-46.0); Hemoglobin 8.1 g/dL (12.2-16.2); Lymphocytes # (auto) 1.1 10 ^3/uL (0.4-5.4); Lymphocytes % (auto) 17.6 % (10.0-50.0); Mean Corpuscular Hemoglobin 31.9 pg (28.0-32.0); Mean Corpuscular Hgb Conc. 34.1 g/dL (32.0-36.0); Mean Corpuscular Volume 93.5 fL (80.0-100.0); Monocytes # (auto) 0.7 10 ^3/uL (0-1.3); Monocytes % (auto) 10.8 % (0.0-12.0); Neutrophils # (auto) 4.3 10 ^3/uL (1.6-8.6); Neutrophils % (auto) 70.3 % (37.0-80.0); Nucleated Red Blood Cells % 0.1 %; Platelet Count (auto) 172 10^3/uL (140-450); Red Blood Cells 2.54 10^6/uL (4.0-5.20); White Blood Cell 6.1 10^3/uL (4.4-10.8)
[2020-05-29 05:33] VITALS: BP 113/47
[2020-05-29] MEDS: SUCRALFATE 1 GM/10 ML ORAL SUSP PO SCH ×2 (06:10→10:56)
[2020-05-29 09:00] VITALS: BP 126/61
--- NOTE | 2020-05-29 09:02 | NUR ---
Respiratory note: ASSESSED PT FOR PRN TX. HR 68, RR 18, POX 98% ON 2L NC, BREATH SOUNDS ARE CLEAR/DIMINISHED. NO SOB OR DISTRESS NOTED. PT WAS NOTIFY TO HAVE RT PAGE FOR NEEDED TX.
[2020-05-29] MEDS: OXYBUTYNIN CHL 5 MG TAB PO SCH (10:55)
[2020-05-29] MEDS: PANTOPRAZOLE 40 MG/10 ML VIAL INJ IV SCH (10:55)
[2020-05-29] MEDS: LEVOTHYROXINE SODIUM 50 MCG TAB PO SCH (10:55)
[2020-05-29] MEDS: ATORVASTATIN 20 MG TAB PO SCH (10:55)
--- NOTE | 2020-05-29 10:58 | NUR ---
assessment Patient is a 65 year old female who is alert and oriented. Patients cognitive abilities are intact. Prior to admission patient lived home with her son Koffi and functioned with assistance. Per patient she will return home to her prior living arrangements post discharge and family will transport her home. Patient informed me her son does the cooking and cleaning for her. Patient informed me she can bathe, dress, and feed herself. Patient informed me she has no needs at home. Patient informed me she feels safe returning home on discharge. Patients PCP is Frances Estevez. Patient informed me she came to ER due to being dizzy. Patient informed me her blood pressure was low. I informed patient I will continue to monitor and follow up as appropriate. At this time patient has no post discharge needs identified. I informed patient she has a right to speak to a renal social worker regarding all care. I informed patient she has a right to participate in any and all discharge planning. Patient does not have a POA and advanced directive. I have offered patient information on POA and advanced directives. I informed the patient the advantages and benefits of having an Advanced Directive. Patient verbalized understanding and agreed to discharge plan. Addendum: 05/29/20 at 1103 by Mercy DANGELO Amended: Links added.
[2020-05-29 13:00] VITALS: BP 143/56
--- NOTE | 2020-05-29 16:58 | NUR ---
Discharge instructions given as ordered. Encourage to follow up with PMD as instructed. All questions and concerns addressed. Patient verbalized understanding. Medication reconciliation form completed and copy given to patient. IV removed with catheter intact, pressure dressing applied, cervantes catheter removed. Telemetry unit returned to ICU. Patient taken to vehicle via wheelchair with all personal belongings, accompanied by staff and family member. No distress noted at time of departure.
== END 2020-05-29 16:58 | disposition home or self-care (01) | DRG 383 ==
LOC: ER 16:30 → TELE 16:31 → TELE-WESTW 05-27 09:33
PROVIDERS: ADMIT Hospitalist; ATTEND Family Medicine
PROC: 30233K1 Transfusion of Nonautologous Frozen Plasma into Peripheral Vein, Percutaneous Approach (ICD-10-PCS; 2020-05-27)
PROC: 30233N1 Transfusion of Nonautologous Red Blood Cells into Peripheral Vein, Percutaneous Approach (ICD-10-PCS; 2020-05-27)
PROC: 0DB88ZX Excision of Small Intestine, Via Natural or Artificial Opening Endoscopic, Diagnostic (ICD-10-PCS; 2020-05-28)
PROC: 0DB68ZX Excision of Stomach, Via Natural or Artificial Opening Endoscopic, Diagnostic (ICD-10-PCS; principal; 2020-05-28 12:45)
DX: K25.9 Gastric ulcer, unspecified as acute or chronic, without hemorrhage or perforation (principal); N17.0 Acute kidney failure with tubular necrosis; I50.22 Chronic systolic (congestive) heart failure; E44.0 Moderate protein-calorie malnutrition; I42.8 Other cardiomyopathies; Z68.1 Body mass index [BMI] 19.9 or less, adult; T45.515A Adverse effect of anticoagulants, initial encounter; E86.1 Hypovolemia; D64.9 Anemia, unspecified; I11.0 Hypertensive heart disease with heart failure; E78.5 Hyperlipidemia, unspecified; E03.9 Hypothyroidism, unspecified; I48.0 Paroxysmal atrial fibrillation; I25.10 Atherosclerotic heart disease of native coronary artery without angina pectoris; K44.9 Diaphragmatic hernia without obstruction or gangrene; F17.210 Nicotine dependence, cigarettes, uncomplicated; I44.7 Left bundle-branch block, unspecified; I95.89 Other hypotension; F32.9 Major depressive disorder, single episode, unspecified; F41.9 Anxiety disorder, unspecified; E11.42 Type 2 diabetes mellitus with diabetic polyneuropathy; K21.9 Gastro-esophageal reflux disease without esophagitis; J44.9 Chronic obstructive pulmonary disease, unspecified; K31.9 Disease of stomach and duodenum, unspecified; M81.0 Age-related osteoporosis without current pathological fracture; Z80.1 Family history of malignant neoplasm of trachea, bronchus and lung; I25.2 Old myocardial infarction; Z79.01 Long term (current) use of anticoagulants; Z80.8 Family history of malignant neoplasm of other organs or systems; Z82.49 Family history of ischemic heart disease and other diseases of the circulatory system; Z83.3 Family history of diabetes mellitus; Z90.710 Acquired absence of both cervix and uterus; Z91.19 Patient's noncompliance with other medical treatment and regimen; Z95.810 Presence of automatic (implantable) cardiac defibrillator; Y92.89 Other specified places as the place of occurrence of the external cause; Z88.5 Allergy status to narcotic agent; Z98.51 Tubal ligation status
CPT/HCPCS: 36415; 70450; 71045; 80048; 80053; 81001; 82270; 83735; 83880; 84443; 84484; 85025; 85610; 85730; 86850; 86870; 86900; 86901; 86902; 86922; 93005; 93306; 97163; C9113; G0378; J2250; J2405; J3430; Q9956

== ENCOUNTER 2020-05-29 22:54 | Emergency (ER) | payer OTHER, MEDICAID ==
[~2020-05-29] VITALS: Ht 180.3 cm; Wt 42.6 kg
[2020-05-29 23:51] LABS: Basophils # (auto) 0 10 ^3/uL (0-0.2); Basophils % (auto) 0.3 % (0.0-2.0); Eosinophils # (auto) 0 10 ^3/uL (0-0.8); Eosinophils % (auto) 0.4 % (0.0-7.0); Hemoglobin 8.8 g/dL (12.2-16.2); Lymphocytes # (auto) 0.7 10 ^3/uL (0.4-5.4); Lymphocytes % (auto) 9.6 % (10.0-50.0); Mean Corpuscular Hemoglobin 31.8 pg (28.0-32.0); Mean Corpuscular Hgb Conc. 33.9 g/dL (32.0-36.0); Mean Corpuscular Volume 93.7 fL (80.0-100.0); Monocytes # (auto) 0.9 10 ^3/uL (0-1.3); Monocytes % (auto) 11.6 % (0.0-12.0); Neutrophils # (auto) 5.8 10 ^3/uL (1.6-8.6); Neutrophils % (auto) 78.1 % (37.0-80.0); Platelet Count (auto) 205 10^3/uL (140-450); Red Blood Cells 2.77 10^6/uL (4.0-5.20); Red Cell Distribution Width 15.6 % (11.8-14.3); White Blood Cell 7.4 10^3/uL (4.4-10.8)
[2020-05-30 00:08] LABS: INR 1.07 (0.9-1.15); Partial Thromboplastin Time 29.1 sec (23.64-32.05)
[2020-05-30 00:13] LABS: Albumin 2.7 g/dL (3.4-5.0); BUN/Creatinine Ratio 13.6; Calcium 8.1 mg/dL (8.5-10.1); Magnesium 1.9 mg/dL (1.6-2.6); Potassium 3.6 mmol/L (3.5-5.1)
[2020-05-30 00:18] LABS: Bilirubin, Total 0.5 mg/dL (0.2-1.0); Total Protein 5.8 g/dL (6.4-8.2)
[2020-05-30 01:30] LABS: Urine Bacteria NONE SEEN /hpf (None Seen); Urine Blood Negative /uL (Negative); Urine Hyaline Cast FEW /lpf (0 - 2); Urine Mucus FEW (None Seen); Urine Specific Gravity 1.022 (1.001-1.035); Urine WBC 13 /hpf (0 - 5)
[2020-05-30] MEDS ORDERED: CIPROFLOXACIN HCL 500 MG TAB PO ONE (08:45)
[2020-05-30 08:57] VITALS: BP 129/53
== END 2020-05-30 06:37 | disposition home or self-care (01) ==
LOC: EDBD 22:54 → ER 22:59
DX: I48.20 Chronic atrial fibrillation, unspecified (principal); I11.0 Hypertensive heart disease with heart failure; I50.9 Heart failure, unspecified; D53.9 Nutritional anemia, unspecified; N39.0 Urinary tract infection, site not specified; I25.10 Atherosclerotic heart disease of native coronary artery without angina pectoris; J44.9 Chronic obstructive pulmonary disease, unspecified; E78.5 Hyperlipidemia, unspecified; I25.2 Old myocardial infarction; E07.9 Disorder of thyroid, unspecified; F17.210 Nicotine dependence, cigarettes, uncomplicated; Z20.828 Contact with and (suspected) exposure to other viral communicable diseases; Z88.6 Allergy status to analgesic agent
CPT/HCPCS: 36415; 71045; 80053; 81001; 82728; 83735; 83880; 84484; 85025; 85379; 85610; 85730; 87040; 87070; 87086; 87804; 87880; 93005; 99285; U0003

== ENCOUNTER 2020-07-24 16:16 | Inpatient (IN) | payer OTHER, MEDICAID ==
[~2020-07-24] VITALS: Ht 154.9 cm; Wt 45.1 kg
[2020-07-24] MEDS ORDERED: PANTOPRAZOLE 40 MG/10 ML VIAL INJ IV STA (16:29)
[2020-07-24] MEDS ORDERED: MORPHINE SULFATE 4 MG/ML SYR/VIAL IV ONE (16:30)
[2020-07-24] MEDS ORDERED: SODIUM CHLORIDE 0.9% 500 ML IVB ONE (16:30)
[2020-07-24] MEDS ORDERED: ONDANSETRON HCL 4 MG/2 ML VIAL IV ONE (16:30)
[2020-07-24 16:58] LABS: Basophils # (auto) 0 10 ^3/uL (0-0.2); Basophils % (auto) 0.7 % (0.0-2.0); Eosinophils # (auto) 0.1 10 ^3/uL (0-0.8); Hematocrit 39.7 % (36.0-46.0); Hemoglobin 13.3 g/dL (12.2-16.2); Lymphocytes # (auto) 1.9 10 ^3/uL (0.4-5.4); Lymphocytes % (auto) 30.3 % (10.0-50.0); Mean Corpuscular Hemoglobin 29.6 pg (28.0-32.0); Mean Corpuscular Hgb Conc. 33.5 g/dL (32.0-36.0); Mean Corpuscular Volume 88.2 fL (80.0-100.0); Monocytes # (auto) 0.7 10 ^3/uL (0-1.3); Monocytes % (auto) 10.4 % (0.0-12.0); Neutrophils # (auto) 3.6 10 ^3/uL (1.6-8.6); Neutrophils % (auto) 56.6 % (37.0-80.0); Nucleated Red Blood Cells % 0.1 %; Platelet Count (auto) 261 10^3/uL (140-450); Red Blood Cells 4.51 10^6/uL (4.0-5.20); Red Cell Distribution Width 16.8 % (11.8-14.3); White Blood Cell 6.3 10^3/uL (4.4-10.8)
[2020-07-24 17:07] LABS: Albumin 3.3 g/dL (3.4-5.0); Anion Gap 1 (5-15); Blood Urea Nitrogen 12 mg/dL (7-18); Calcium 8.9 mg/dL (8.5-10.1); Carbon Dioxide 31 mmol/L (21-32); Chloride 107 mmol/L (98-107); Glucose 92 mg/dL (74-106); Lipase 87 U/L (73-393); Potassium 3.6 mmol/L (3.5-5.1); Sodium 139 mmol/L (136-145)
[2020-07-24 17:15] LABS: Alanine Aminotransferase 18 U/L (13-56); Alkaline Phosphatase 110 U/L (45-117); Amylase 34 U/L (25-115); Aspartate Aminotransferase 18 U/L (15-37); BUN/Creatinine Ratio 15.8; Bilirubin, Total 0.4 mg/dL (0.2-1.0); GFR African American 99 mL/min; GFR Non-African American 81 mL/min; Total Protein 6.9 g/dL (6.4-8.2)
[2020-07-24] MEDS ORDERED: ACETAMINOPHEN 500 MG TAB PO PRN (19:45)
[2020-07-24] MEDS ORDERED: ALBUTEROL SULF 2.5 MG/0.5ML(0.5%) NEB SOLN NEB PRN (19:45)
[2020-07-24] MEDS ORDERED: traMADol HCL 50 MG TAB PO PRN (19:45)
[2020-07-24] MEDS ORDERED: PROMETHAZINE HCL 25 MG/ML 1ML IV PRN (19:45)
[2020-07-24] MEDS ORDERED: FAMOTIDINE (10MG/ML) 2ML VL IV SCH (19:45)
[2020-07-24] MEDS ORDERED: SODIUM CHLORIDE 0.9% 1,000 ML IV SCH (19:45)
[2020-07-24] MEDS ORDERED: TEMAZEPAM 15 MG CAP PO PRN (19:45)
[2020-07-24] MEDS: FAMOTIDINE (10MG/ML) 2ML VL IV SCH (20:24)
[2020-07-24 20:29] LABS: Urine Bacteria FEW /hpf (None Seen); Urine Blood Negative /uL (Negative); Urine Mucus FEW (None Seen); Urine Specific Gravity 1.016 (1.001-1.035); Urine WBC 26 /hpf (0 - 5)
[2020-07-24 21:35] VITALS: BP 149/60
[2020-07-24] MEDS: MORPHINE SULF INJ 2 MG/ML SYRINGE 1ML IV PRN (21:40)
[2020-07-25] VITALS (8 sets, daily range): BP systolic 136–159; BP diastolic 53–77
[2020-07-25] MEDS: IPRATROPIUM BROM 0.5 MG/2.5ML INH SOL NEB SCH ×5 (00:32→23:11)
[2020-07-25] MEDS: ALBUTEROL SULF 2.5 MG/0.5ML(0.5%) NEB SOLN NEB SCH ×5 (00:32→23:11)
[2020-07-25] MEDS: MORPHINE SULF INJ 2 MG/ML SYRINGE 1ML IV PRN ×4 (03:06→23:24)
[2020-07-25 05:55] LABS: Basophils # (auto) 0 10 ^3/uL (0-0.2); Basophils % (auto) 0.6 % (0.0-2.0); Eosinophils # (auto) 0.1 10 ^3/uL (0-0.8); Eosinophils % (auto) 2.3 % (0.0-7.0); Hematocrit 35.1 % (36.0-46.0); Hemoglobin 11.7 g/dL (12.2-16.2); Lymphocytes # (auto) 2.2 10 ^3/uL (0.4-5.4); Lymphocytes % (auto) 36.3 % (10.0-50.0); Mean Corpuscular Hemoglobin 29.3 pg (28.0-32.0); Mean Corpuscular Hgb Conc. 33.4 g/dL (32.0-36.0); Mean Corpuscular Volume 87.6 fL (80.0-100.0); Monocytes # (auto) 0.7 10 ^3/uL (0-1.3); Monocytes % (auto) 11.6 % (0.0-12.0); Neutrophils % (auto) 49.2 % (37.0-80.0); Platelet Count (auto) 223 10^3/uL (140-450); Red Blood Cells 4.01 10^6/uL (4.0-5.20); Red Cell Distribution Width 15.9 % (11.8-14.3); White Blood Cell 6.1 10^3/uL (4.4-10.8)
[2020-07-25 08:59] LABS: INR 1.79 (0.9-1.15); Partial Thromboplastin Time 34.2 sec (23.0-31.2)
[2020-07-25] MEDS: FAMOTIDINE (10MG/ML) 2ML VL IV SCH (10:00)
[2020-07-25] MEDS ORDERED: POLYETHYLENE GLYCOL 17 GM PWDR PO ONE (10:00)
[2020-07-25] MEDS ORDERED: SENNA 8.6 MG TAB PO ONE (10:00)
[2020-07-25 12:05] LABS: INR 1.63 (0.9-1.15)
[2020-07-25 12:09] LABS: Albumin 3.2 g/dL (3.4-5.0); BUN/Creatinine Ratio 13.8; Calcium 8.5 mg/dL (8.5-10.1); Magnesium 1.8 mg/dL (1.6-2.6); Potassium 3.6 mmol/L (3.5-5.1)
[2020-07-25 12:11] LABS: Basophils # (auto) 0 10 ^3/uL (0-0.2); Basophils % (auto) 0.5 % (0.0-2.0); Eosinophils # (auto) 0.1 10 ^3/uL (0-0.8); Eosinophils % (auto) 1.4 % (0.0-7.0); Hematocrit 38.4 % (36.0-46.0); Hemoglobin 12.6 g/dL (12.2-16.2); Lymphocytes # (auto) 1.5 10 ^3/uL (0.4-5.4); Lymphocytes % (auto) 24.4 % (10.0-50.0); Mean Corpuscular Hemoglobin 28.9 pg (28.0-32.0); Mean Corpuscular Hgb Conc. 32.9 g/dL (32.0-36.0); Monocytes # (auto) 0.6 10 ^3/uL (0-1.3); Monocytes % (auto) 9.8 % (0.0-12.0); Neutrophils # (auto) 3.9 10 ^3/uL (1.6-8.6); Neutrophils % (auto) 63.9 % (37.0-80.0); Nucleated Red Blood Cells % 0.1 %; Platelet Count (auto) 256 10^3/uL (140-450); Red Blood Cells 4.37 10^6/uL (4.0-5.20); Red Cell Distribution Width 16.4 % (11.8-14.3); White Blood Cell 6.1 10^3/uL (4.4-10.8)
[2020-07-25 12:12] LABS: Bilirubin, Total 0.4 mg/dL (0.2-1.0); Total Protein 6.5 g/dL (6.4-8.2)
[2020-07-25] MEDS ORDERED: FUROSEMIDE 40 MG/4 ML VIAL IV ONE (13:45)
[2020-07-25] MEDS: AMPICILLIN & SULBACTAM SODIUM 3 GM in SODIUM CHL 0.9% 100 ML IV SCH ×2 (13:45→20:03)
[2020-07-25] MEDS ORDERED: ceFAZolin 1GM/50ML 50 ML IV ONE (14:24)
[2020-07-25] MEDS ORDERED: LIDOCAINE 1% (LOCAL ANESTH.) PF 5ml SDV ONE (15:16)
[2020-07-25] MEDS ORDERED: SUCCINYLCHOLINE CHLORIDE 20 MG/ML 10ML VIAL IV ONE (15:17)
[2020-07-25] MEDS ORDERED: MIDAZOLAM HCL 1MG/1ML-2 ML VIAL ONE (15:20)
[2020-07-25] MEDS ORDERED: ETOMIDATE (2MG/ML) 20ML VIAL IV ONE (15:23)
[2020-07-25] MEDS ORDERED: ROCURONIUM 10MG/ML 10ML VIAL IV ONE (15:23)
[2020-07-25] MEDS ORDERED: fentaNYL CITRATE 100 MCG/2 ML VL ONE (15:29)
[2020-07-25] MEDS ORDERED: METOCLOPRAMIDE HCL 5MG/ml INJ 2ml VIAL ONE (15:35)
[2020-07-25] MEDS ORDERED: GLYCOPYRROLATE 0.2 MG/ML 1ML VIAL ONE (15:59)
[2020-07-25] MEDS ORDERED: NEOSTIGMINE 1 MG/ML INJ (10mg/10ML VIAL) ONE (15:59)
[2020-07-25] MEDS ORDERED: ESMOLOL HCL 10 ML IV ONE (16:03)
[2020-07-25] MEDS ORDERED: ONDANSETRON HCL 4 MG/2 ML VIAL IV PRN (16:15)
[2020-07-25] MEDS ORDERED: hydrALAZINE HCL 20 MG/ML VL IV PRN (16:15)
[2020-07-25] MEDS ORDERED: HYDROmorphone HCL 2 MG/ML VL IV PRN ×2 (16:15)
[2020-07-25] MEDS ORDERED: NALOXONE HCL 0.4 MG/ML VIAL IV PRN (16:15)
[2020-07-25] MEDS: D5W/SOD CHL 0.45%/KCL 20MEQ 1,000 ML IV SCH (18:39)
[2020-07-25] MEDS: ceFAZolin 1GM/50ML 50 ML IV SCH (21:25)
[2020-07-26] VITALS (14 sets, daily range): BP systolic 104–171; BP diastolic 56–108
[2020-07-26] MEDS: AMPICILLIN & SULBACTAM SODIUM 3 GM in SODIUM CHL 0.9% 100 ML IV SCH ×3 (01:59→13:45)
[2020-07-26] MEDS: D5W/SOD CHL 0.45%/KCL 20MEQ 1,000 ML IV SCH ×3 (02:54→22:34)
[2020-07-26] MEDS: MORPHINE SULF INJ 2 MG/ML SYRINGE 1ML IV PRN ×2 (02:54→06:45)
[2020-07-26] MEDS: ONDANSETRON HCL 4 MG/2 ML VIAL IV PRN ×2 (03:04→20:10)
[2020-07-26] MEDS: IPRATROPIUM BROM 0.5 MG/2.5ML INH SOL NEB SCH ×4 (06:59→19:37)
[2020-07-26] MEDS: ALBUTEROL SULF 2.5 MG/0.5ML(0.5%) NEB SOLN NEB SCH ×4 (06:59→19:37)
[2020-07-26 07:15] LABS: Basophils # (auto) 0.1 10 ^3/uL (0-0.2); Basophils % (auto) 0.5 % (0.0-2.0); Eosinophils # (auto) 0 10 ^3/uL (0-0.8); Eosinophils % (auto) 0.2 % (0.0-7.0); Hematocrit 44.2 % (36.0-46.0); Hemoglobin 14.9 g/dL (12.2-16.2); Lymphocytes # (auto) 1.3 10 ^3/uL (0.4-5.4); Lymphocytes % (auto) 12.1 % (10.0-50.0); Mean Corpuscular Hemoglobin 29.4 pg (28.0-32.0); Mean Corpuscular Hgb Conc. 33.7 g/dL (32.0-36.0); Mean Corpuscular Volume 87.3 fL (80.0-100.0); Monocytes # (auto) 1.4 10 ^3/uL (0-1.3); Monocytes % (auto) 12.8 % (0.0-12.0); Neutrophils # (auto) 8.1 10 ^3/uL (1.6-8.6); Neutrophils % (auto) 74.4 % (37.0-80.0); Nucleated Red Blood Cells % 0.1 %; Platelet Count (auto) 252 10^3/uL (140-450); Red Blood Cells 5.06 10^6/uL (4.0-5.20); Red Cell Distribution Width 16.1 % (11.8-14.3); White Blood Cell 10.9 10^3/uL (4.4-10.8)
[2020-07-26 07:45] LABS: Albumin 3.4 g/dL (3.4-5.0); Calcium 8.8 mg/dL (8.5-10.1); Potassium 3.2 mmol/L (3.5-5.1)
[2020-07-26 07:49] LABS: BUN/Creatinine Ratio 9.3; Bilirubin, Total 0.4 mg/dL (0.2-1.0); Total Protein 7.1 g/dL (6.4-8.2)
[2020-07-26] MEDS ORDERED: AMIODARONE 450mg/250ml AE 250 ML IV ONE (08:00)
[2020-07-26] MEDS ORDERED: AMIODARONE HCL 150 MG in D5W 5% 100 ML IV ONE (08:00)
[2020-07-26] MEDS: ceFAZolin 1GM/50ML 50 ML IV SCH ×3 (09:06→22:10)
[2020-07-26] MEDS: FAMOTIDINE (10MG/ML) 2ML VL IV SCH (09:14)
[2020-07-26] MEDS ORDERED: dilTIAZem 25 MG/5 ML VIAL IV ONE ×2 (11:00→12:15)
[2020-07-26] MEDS: KETOROLAC TROMETH 30 MG/ML 1ML VIAL IV PRN ×3 (11:17→17:05)
[2020-07-26] MEDS: HYDROmorphone HCL 2 MG/ML VL IV PRN ×2 (12:10→20:11)
[2020-07-26] MEDS ORDERED: DIGOXIN (250MCG/ML) 2 ML AMPULE IV ONE (12:15)
[2020-07-26] MEDS ORDERED: dilTIAZem 120MG ER CAP PO ONE (12:30)
[2020-07-26] MEDS: DIGOXIN 0.125 MG TAB PO SCH (12:42)
[2020-07-26] MEDS: AMIODARONE 450mg/250ml AE 250 ML IV SCH (14:00)
[2020-07-26 15:31] LABS: Basophils # (auto) 0.1 10 ^3/uL (0-0.2); Eosinophils # (auto) 0 10 ^3/uL (0-0.8); Eosinophils % (auto) 0.1 % (0.0-7.0); Hematocrit 41.1 % (36.0-46.0); Hemoglobin 13.6 g/dL (12.2-16.2); Lymphocytes # (auto) 1.2 10 ^3/uL (0.4-5.4); Lymphocytes % (auto) 8.7 % (10.0-50.0); Mean Corpuscular Hemoglobin 29.1 pg (28.0-32.0); Mean Corpuscular Volume 88.2 fL (80.0-100.0); Monocytes # (auto) 1.7 10 ^3/uL (0-1.3); Monocytes % (auto) 11.7 % (0.0-12.0); Neutrophils # (auto) 11.2 10 ^3/uL (1.6-8.6); Neutrophils % (auto) 78.5 % (37.0-80.0); Nucleated Red Blood Cells % 0.2 %; Platelet Count (auto) 203 10^3/uL (140-450); Red Blood Cells 4.67 10^6/uL (4.0-5.20); Red Cell Distribution Width 16.1 % (11.8-14.3); White Blood Cell 14.3 10^3/uL (4.4-10.8)
[2020-07-26] MEDS ORDERED: IOHEXOL 300 MG/ML 100ML BOTTLE IJ ONE (15:52)
[2020-07-26 16:15] LABS: Albumin 2.9 g/dL (3.4-5.0); Calcium 8.1 mg/dL (8.5-10.1); Potassium 3.1 mmol/L (3.5-5.1)
[2020-07-26 16:17] LABS: BUN/Creatinine Ratio 9.2; Bilirubin, Direct 0.2 mg/dL (0-0.2); Bilirubin, Total 0.4 mg/dL (0.2-1.0); Total Protein 6.3 g/dL (6.4-8.2)
[2020-07-26] MEDS ORDERED: POTASSIUM CHLORIDE 40 MEQ, LIDOCAINE 1% (LOCAL ANESTH.) 4 ML in SODIUM CHL 0.9% 100 ML IV ONE (17:15)
[2020-07-26] MEDS: AMIODARONE HCL 200 MG TAB PO SCH (22:11)
[2020-07-27] VITALS: BP 155/60
[2020-07-27] MEDS: ALBUTEROL SULF 2.5 MG/0.5ML(0.5%) NEB SOLN NEB SCH ×4 (00:08→18:52)
[2020-07-27] MEDS: IPRATROPIUM BROM 0.5 MG/2.5ML INH SOL NEB SCH ×4 (00:08→18:52)
[2020-07-27] MEDS: HYDROmorphone HCL 2 MG/ML VL IV PRN ×5 (00:40→19:01)
[2020-07-27 04:00] VITALS: BP 160/52
[2020-07-27] MEDS: AMIODARONE 450mg/250ml AE 250 ML IV SCH ×2 (04:44→20:00)
[2020-07-27] MEDS: ceFAZolin 1GM/50ML 50 ML IV SCH ×3 (05:27→22:38)
[2020-07-27 08:00] VITALS: BP 156/56
[2020-07-27] MEDS: D5W/SOD CHL 0.45%/KCL 20MEQ 1,000 ML IV SCH ×2 (08:15→16:09)
[2020-07-27] MEDS: DIGOXIN 0.125 MG TAB PO SCH (10:13)
[2020-07-27] MEDS: FAMOTIDINE (10MG/ML) 2ML VL IV SCH (10:13)
[2020-07-27] MEDS: KETOROLAC TROMETH 30 MG/ML 1ML VIAL IV PRN (10:13)
[2020-07-27] MEDS: AMIODARONE HCL 200 MG TAB PO SCH ×2 (10:13→22:38)
[2020-07-27 11:11] LABS: Magnesium 1.8 mg/dL (1.6-2.6); Potassium 3.3 mmol/L (3.5-5.1)
[2020-07-27 12:00] VITALS: BP 137/59
[2020-07-27] MEDS ORDERED: dilTIAZem 25 MG/5 ML VIAL IV ONE (12:00)
[2020-07-27] MEDS: dilTIAZem 125mg/125ml BAG KIT 100 ML IV SCH (13:45)
[2020-07-27] MEDS ORDERED: POTASSIUM EFFERVESENT TAB 25 MEQ PO ONE (15:15)
[2020-07-27 16:00] VITALS: BP 144/46
[2020-07-27 20:00] VITALS: BP 154/49
[2020-07-28] VITALS (8 sets, daily range): BP systolic 143–163; BP diastolic 45–63
[2020-07-28] MEDS: ALBUTEROL SULF 2.5 MG/0.5ML(0.5%) NEB SOLN NEB SCH ×5 (00:24→23:50)
[2020-07-28] MEDS: IPRATROPIUM BROM 0.5 MG/2.5ML INH SOL NEB SCH ×5 (00:24→23:50)
[2020-07-28] MEDS ORDERED: diphenhdrAMINE HCL 25 MG CAP PO ONE ×2 (02:00→02:01)
[2020-07-28 04:03] LABS: Basophils # (auto) 0 10 ^3/uL (0-0.2); Basophils % (auto) 0.2 % (0.0-2.0); Eosinophils # (auto) 0.1 10 ^3/uL (0-0.8); Eosinophils % (auto) 1.5 % (0.0-7.0); Hematocrit 35.7 % (36.0-46.0); Hemoglobin 12.1 g/dL (12.2-16.2); Lymphocytes # (auto) 1.2 10 ^3/uL (0.4-5.4); Lymphocytes % (auto) 12.4 % (10.0-50.0); Mean Corpuscular Hemoglobin 29.8 pg (28.0-32.0); Mean Corpuscular Hgb Conc. 33.8 g/dL (32.0-36.0); Monocytes # (auto) 1.3 10 ^3/uL (0-1.3); Monocytes % (auto) 13.5 % (0.0-12.0); Neutrophils # (auto) 6.8 10 ^3/uL (1.6-8.6); Neutrophils % (auto) 72.4 % (37.0-80.0); Platelet Count (auto) 204 10^3/uL (140-450); Red Blood Cells 4.06 10^6/uL (4.0-5.20); White Blood Cell 9.4 10^3/uL (4.4-10.8)
[2020-07-28 04:20] LABS: Potassium 3.7 mmol/L (3.5-5.1)
[2020-07-28 04:39] LABS: Albumin 2.5 g/dL (3.4-5.0); BUN/Creatinine Ratio 12.2; Bilirubin, Total 0.3 mg/dL (0.2-1.0); Calcium 8.2 mg/dL (8.5-10.1)
[2020-07-28] MEDS: D5W/SOD CHL 0.45%/KCL 20MEQ 1,000 ML IV SCH ×2 (05:26→14:23)
[2020-07-28] MEDS: HYDROmorphone HCL 2 MG/ML VL IV PRN ×4 (06:05→19:49)
[2020-07-28] MEDS: ceFAZolin 1GM/50ML 50 ML IV SCH (06:05)
[2020-07-28] MEDS: dilTIAZem 125mg/125ml BAG KIT 100 ML IV SCH (08:12)
[2020-07-28] MEDS: FAMOTIDINE (10MG/ML) 2ML VL IV SCH (10:00)
[2020-07-28] MEDS: AMIODARONE 450mg/250ml AE 250 ML IV SCH (11:00)
[2020-07-28] MEDS: DIGOXIN 0.125 MG TAB PO SCH (14:23)
[2020-07-28] MEDS: AMIODARONE HCL 200 MG TAB PO SCH ×2 (14:23→19:48)
[2020-07-28] MEDS: AMPICILLIN & SULBACTAM SODIUM 3 GM in SODIUM CHL 0.9% 100 ML IV SCH ×2 (14:24→18:36)
[2020-07-28] MEDS ORDERED: KETOROLAC TROMETH 30 MG/ML 1ML VIAL IV PRN (16:00)
[2020-07-28] MEDS: ONDANSETRON HCL 4 MG/2 ML VIAL IV PRN (16:42)
[2020-07-28] MEDS: HYDROcodone-ACET 10/325MG TAB PO PRN (18:34)
[2020-07-29] MEDS: AMPICILLIN & SULBACTAM SODIUM 3 GM in SODIUM CHL 0.9% 100 ML IV SCH ×5 (00:28→23:46)
[2020-07-29] MEDS: HYDROmorphone HCL 2 MG/ML VL IV PRN ×3 (03:00→20:49)
[2020-07-29 03:51] LABS: Basophils # (auto) 0 10 ^3/uL (0-0.2); Basophils % (auto) 0.3 % (0.0-2.0); Eosinophils # (auto) 0.1 10 ^3/uL (0-0.8); Eosinophils % (auto) 1.6 % (0.0-7.0); Hematocrit 36.9 % (36.0-46.0); Hemoglobin 12.3 g/dL (12.2-16.2); Lymphocytes # (auto) 0.9 10 ^3/uL (0.4-5.4); Lymphocytes % (auto) 12.5 % (10.0-50.0); Mean Corpuscular Hemoglobin 29.1 pg (28.0-32.0); Mean Corpuscular Hgb Conc. 33.4 g/dL (32.0-36.0); Mean Corpuscular Volume 87.2 fL (80.0-100.0); Monocytes % (auto) 13.1 % (0.0-12.0); Neutrophils # (auto) 5.4 10 ^3/uL (1.6-8.6); Neutrophils % (auto) 72.5 % (37.0-80.0); Platelet Count (auto) 198 10^3/uL (140-450); Red Blood Cells 4.23 10^6/uL (4.0-5.20); White Blood Cell 7.5 10^3/uL (4.4-10.8)
[2020-07-29 04:04] VITALS: BP 153/58
[2020-07-29 04:08] LABS: Albumin 2.5 g/dL (3.4-5.0); Calcium 8.6 mg/dL (8.5-10.1); Potassium 3.4 mmol/L (3.5-5.1)
[2020-07-29 04:12] LABS: BUN/Creatinine Ratio 8.3; Bilirubin, Total 0.5 mg/dL (0.2-1.0); Total Protein 6.3 g/dL (6.4-8.2)
[2020-07-29] MEDS: D5W/SOD CHL 0.45%/KCL 20MEQ 1,000 ML IV SCH ×3 (04:38→21:32)
[2020-07-29] MEDS: HYDROcodone-ACET 10/325MG TAB PO PRN ×3 (06:04→18:03)
[2020-07-29] MEDS: ALBUTEROL SULF 2.5 MG/0.5ML(0.5%) NEB SOLN NEB SCH ×3 (06:07→18:36)
[2020-07-29] MEDS: IPRATROPIUM BROM 0.5 MG/2.5ML INH SOL NEB SCH ×3 (06:07→18:36)
[2020-07-29 08:00] VITALS: BP 136/48
[2020-07-29] MEDS ORDERED: POTASSIUM CHLORIDE 60 MEQ, LIDOCAINE 1% (LOCAL ANESTH.) 6 ML in SODIUM CHL 0.9% 500 ML IV ONE (08:15)
[2020-07-29] MEDS: DIGOXIN 0.125 MG TAB PO SCH (10:09)
[2020-07-29] MEDS: FAMOTIDINE (10MG/ML) 2ML VL IV SCH (10:09)
[2020-07-29] MEDS: AMIODARONE HCL 200 MG TAB PO SCH ×2 (10:09→21:33)
[2020-07-29] MEDS ORDERED: MAGNESIUM SULFATE 1GM/100ML 100 ML IV ONE (11:15)
[2020-07-29 12:00] VITALS: BP 137/46
[2020-07-29] MEDS ORDERED: ENOXAPARIN SOD 30 MG/0.3 ML SYRINGE SC ONE (12:00)
[2020-07-29] MEDS ORDERED: diphenhdrAMINE HCL 25 MG CAP PO ONE (12:15)
[2020-07-29 15:44] VITALS: BP 138/52
[2020-07-29] MEDS: ONDANSETRON HCL 4 MG/2 ML VIAL IV PRN (20:49)
[2020-07-29 22:00] VITALS: BP 134/76
[2020-07-29] MEDS ORDERED: diphenhdrAMINE HCL 25 MG CAP PO PRN (22:45)
[2020-07-30] MEDS: ALBUTEROL SULF 2.5 MG/0.5ML(0.5%) NEB SOLN NEB SCH ×3 (00:46→12:19)
[2020-07-30] MEDS: IPRATROPIUM BROM 0.5 MG/2.5ML INH SOL NEB SCH ×3 (00:47→12:19)
[2020-07-30] MEDS: HYDROcodone-ACET 10/325MG TAB PO PRN (04:19)
[2020-07-30 05:00] VITALS: BP 144/65
[2020-07-30] MEDS: D5W/SOD CHL 0.45%/KCL 20MEQ 1,000 ML IV SCH (06:07)
[2020-07-30] MEDS: AMPICILLIN & SULBACTAM SODIUM 3 GM in SODIUM CHL 0.9% 100 ML IV SCH ×2 (06:08→12:45)
[2020-07-30 09:00] VITALS: BP 142/58
[2020-07-30] MEDS: FAMOTIDINE (10MG/ML) 2ML VL IV SCH (09:52)
[2020-07-30] MEDS: AMIODARONE HCL 200 MG TAB PO SCH (09:52)
[2020-07-30] MEDS: DIGOXIN 0.125 MG TAB PO SCH (09:53)
[2020-07-30] MEDS ORDERED: ENOXAPARIN SOD 40 MG/0.4 ML SYRINGE SC SCH (10:00)
[2020-07-30 11:52] VITALS: BP 134/63
== END 2020-07-30 14:05 | disposition home or self-care (01) | DRG 418 ==
LOC: ER 16:16 → OVERFLOW 16:17 → WEST WING 16:18 → TELE-WESTW 07-25 11:42 → DOU IN ICU 07-26 16:46 → TELE-WESTW 07-29 17:42
PROVIDERS: ADMIT Internal Medicine; ATTEND Internal Medicine
PROC: 0FT44ZZ Resection of Gallbladder, Percutaneous Endoscopic Approach (ICD-10-PCS; principal; 2020-07-25 15:05)
DX: K80.12 Calculus of gallbladder with acute and chronic cholecystitis without obstruction (principal); I50.22 Chronic systolic (congestive) heart failure; K57.90 Diverticulosis of intestine, part unspecified, without perforation or abscess without bleeding; J44.9 Chronic obstructive pulmonary disease, unspecified; E03.9 Hypothyroidism, unspecified; E78.5 Hyperlipidemia, unspecified; I48.0 Paroxysmal atrial fibrillation; F17.210 Nicotine dependence, cigarettes, uncomplicated; I27.20 Pulmonary hypertension, unspecified; M81.0 Age-related osteoporosis without current pathological fracture; G89.29 Other chronic pain; I11.0 Hypertensive heart disease with heart failure; I25.10 Atherosclerotic heart disease of native coronary artery without angina pectoris; I25.2 Old myocardial infarction; Z79.891 Long term (current) use of opiate analgesic; Z80.1 Family history of malignant neoplasm of trachea, bronchus and lung; Z82.49 Family history of ischemic heart disease and other diseases of the circulatory system; Z83.3 Family history of diabetes mellitus; Z90.710 Acquired absence of both cervix and uterus; Z95.0 Presence of cardiac pacemaker; Z80.8 Family history of malignant neoplasm of other organs or systems
CPT/HCPCS: 36415; 71045; 74176; 74177; 76705; 78226; 80048; 80053; 80076; 81001; 82150; 82962; 83605; 83690; 83735; 83880; 84132; 84484; 85025; 85610; 85730; 86850; 86870; 86900; 86901; 94640; 96361; 96374; C9113; G0378; J0330; J0690; J1885; J2001; J2250; J2405; J3490; J7060

== ENCOUNTER → 2020-07-24 | Outpatient (CLI) | payer OTHER, MEDICAID | END | disposition home or self-care (01) | LOC: LAB 17:33 | PROVIDERS: ATTEND Urology | DX: N39.0 Urinary tract infection, site not specified (principal) | CPT/HCPCS: 87086 ==

== ENCOUNTER 2021-12-31 10:13 | Inpatient (IN) | payer OTHER, MEDICAID ==
[~2021-12-31] VITALS: Ht 154.9 cm; Wt 47.8 kg
[~2021-12-31 10:13] MED LIST changes: -BREX1TAB4 PO; -CIPR500T4 PO; +CYCL-837 PO; -CYCL5TAB PO; -IMI25T PO; -LISI-646 PO; +LISI20TA28 PO; -MELO1TAB56 PO; +MONT-8 PO; -MONT10TA34 PO; -OXYB15TA12 PO
[2021-12-31] MEDS ORDERED: ASPirin 81 mg TAB PO ONE (10:45)
[2021-12-31 11:12] LABS: Basophils # (auto) 0 10 ^3/uL (0-0.2); Basophils % (auto) 0.6 % (0.0-2.0); Eosinophils # (auto) 0 10 ^3/uL (0-0.8); Eosinophils % (auto) 0.2 % (0.0-7.0); Hematocrit 43.8 % (36.0-46.0); Hemoglobin 14.5 g/dL (12.2-16.2); Lymphocytes % (auto) 14.6 % (10.0-50.0); Mean Corpuscular Hemoglobin 30.2 pg (28.0-32.0); Mean Corpuscular Volume 91.3 fL (80.0-100.0); Monocytes # (auto) 0.8 10 ^3/uL (0-1.3); Monocytes % (auto) 10.8 % (0.0-12.0); Neutrophils # (auto) 5.2 10 ^3/uL (1.6-8.6); Neutrophils % (auto) 73.8 % (37.0-80.0); Nucleated Red Blood Cells % 0.1 %; Red Cell Distribution Width 17.3 % (11.8-14.3)
[2021-12-31 11:19] LABS: Potassium 4.3 mmol/L (3.5-5.1)
[2021-12-31 11:23] LABS: Bilirubin, Total 0.7 mg/dL (0.2-1.0); Total Protein 6.1 g/dL (6.4-8.2)
[2021-12-31 11:35] LABS: INR 1.2 (0.9-1.15); Partial Thromboplastin Time 28.7 sec (23.6-33.0)
[2021-12-31 13:11] LABS: Urine Bacteria NONE SEEN /hpf (None Seen); Urine Blood Negative /uL (Negative); Urine Specific Gravity 1.009 (1.001-1.035); Urine WBC <1 /hpf (0 - 5)
[2021-12-31] MEDS ORDERED: FUROSEMIDE 20 MG/2 ML VIAL IV ONE (15:00)
[2021-12-31] MEDS ORDERED: NITROGLYCERIN 0.4 MG SL TAB SL PRN (15:15)
[2021-12-31] MEDS ORDERED: MORPHINE SULFATE INJECTION 2 MG/ML SYRG IV PRN (15:15)
[2021-12-31] MEDS ORDERED: ACETAMINOPHEN 325 MG TAB PO PRN (16:30)
[2021-12-31] MEDS ORDERED: ONDANSETRON HCL 4 MG/2 ML VIAL IV PRN (16:30)
[2021-12-31] MEDS ORDERED: HYDROcodone-ACET 10/325MG TAB PO PRN (16:30)
[2021-12-31] MEDS ORDERED: DOCUSATE SOD 100 MG CAP PO PRN (16:30)
[2021-12-31] MEDS ORDERED: ALBUTEROL SULF 2.5 MG/0.5ML(0.5%) NEB SOLN NEB PRN (16:45)
[2021-12-31] MEDS: FUROSEMIDE 20 MG/2 ML VIAL IV SCH (17:41)
[2021-12-31] MEDS: ENOXAPARIN SOD 60 MG/0.6 ML SYRINGE SC SCH (17:41)
[2021-12-31 18:15] VITALS: BP 124/75
[2021-12-31 18:30] VITALS: BP 124/75
[2021-12-31] MEDS: BUDESONIDE (INHALATION) 0.5 MG/2 ML NEB NEB SCH (19:01)
[2021-12-31] MEDS: IPRATROPIUM BROM 0.5 MG/2.5ML INH SOL NEB SCH (19:01)
[2021-12-31 22:00] VITALS: BP 110/54
[2021-12-31] MEDS: CITALOPRAM HYDROBR 20 MG TAB PO SCH (22:00)
[2021-12-31] MEDS: GABAPENTIN 300 MG CAP PO SCH (22:00)
[2021-12-31] MEDS: ATORVASTATIN 20 MG TAB PO SCH (22:00)
[2022-01-01] VITALS (9 sets, daily range): BP systolic 100–128; BP diastolic 50–68
[2022-01-01] MEDS: IPRATROPIUM BROM 0.5 MG/2.5ML INH SOL NEB SCH ×4 (00:18→18:40)
[2022-01-01] MEDS: ENOXAPARIN SOD 60 MG/0.6 ML SYRINGE SC SCH ×2 (04:58→18:13)
[2022-01-01] MEDS: HYDROcodone-ACET 5/325MG TAB PO PRN ×2 (05:00→20:51)
[2022-01-01 05:51] LABS: Basophils # (auto) 0 10 ^3/uL (0-0.2); Basophils % (auto) 0.5 % (0.0-2.0); Eosinophils # (auto) 0 10 ^3/uL (0-0.8); Eosinophils % (auto) 0.4 % (0.0-7.0); Hematocrit 41.8 % (36.0-46.0); Hemoglobin 14.2 g/dL (12.2-16.2); Lymphocytes # (auto) 1.3 10 ^3/uL (0.4-5.4); Lymphocytes % (auto) 16.8 % (10.0-50.0); Mean Corpuscular Hemoglobin 30.7 pg (28.0-32.0); Mean Corpuscular Volume 90.4 fL (80.0-100.0); Monocytes # (auto) 0.9 10 ^3/uL (0-1.3); Monocytes % (auto) 12.3 % (0.0-12.0); Neutrophils # (auto) 5.3 10 ^3/uL (1.6-8.6); Nucleated Red Blood Cells % 0.1 %; Red Blood Cells 4.62 10^6/uL (4.0-5.20); Red Cell Distribution Width 16.4 % (11.8-14.3); White Blood Cell 7.5 10^3/uL (4.4-10.8)
[2022-01-01] MEDS: FUROSEMIDE 20 MG/2 ML VIAL IV SCH ×2 (06:00→18:13)
[2022-01-01 06:12] LABS: Albumin 2.9 g/dL (3.4-5.0); Calcium 8.9 mg/dL (8.5-10.1); Potassium 3.5 mmol/L (3.5-5.1)
[2022-01-01 06:15] LABS: BUN/Creatinine Ratio 21.3
[2022-01-01 06:17] LABS: Total Protein 5.9 g/dL (6.4-8.2)
[2022-01-01] MEDS: BUDESONIDE (INHALATION) 0.5 MG/2 ML NEB NEB SCH ×2 (06:30→18:40)
[2022-01-01] MEDS: LEVOTHYROXINE SODIUM 50 MCG TAB PO SCH (06:45)
[2022-01-01] MEDS: METOPROLOL TARTRATE 1MG/1ML-5ML VIAL IV PRN (08:36)
[2022-01-01] MEDS: MONTELUKAST SODIUM 10 MG TAB PO SCH (09:50)
[2022-01-01] MEDS: ALBUTEROL SULF 2.5 MG/0.5ML(0.5%) NEB SOLN NEB SCH ×3 (12:00→18:40)
[2022-01-01] MEDS ORDERED: METOPROLOL TARTRATE 25 MG TAB PO ONE (12:45)
[2022-01-01] MEDS: SACUBITRIL-VALSARTAN 24mg/26mg TAB PO SCH (21:55)
[2022-01-01] MEDS: METOPROLOL TARTRATE 25 MG TAB PO SCH (21:56)
[2022-01-01] MEDS: CITALOPRAM HYDROBR 20 MG TAB PO SCH (21:56)
[2022-01-01] MEDS: ATORVASTATIN 20 MG TAB PO SCH (21:56)
[2022-01-01] MEDS: GABAPENTIN 300 MG CAP PO SCH (21:57)
[2022-01-02] MEDS: ALBUTEROL SULF 2.5 MG/0.5ML(0.5%) NEB SOLN NEB SCH ×4 (00:11→18:48)
[2022-01-02] MEDS: IPRATROPIUM BROM 0.5 MG/2.5ML INH SOL NEB SCH ×4 (00:12→18:48)
[2022-01-02 05:00] VITALS: BP 108/55
[2022-01-02] MEDS: FUROSEMIDE 20 MG/2 ML VIAL IV SCH ×2 (05:37→18:03)
[2022-01-02] MEDS: ENOXAPARIN SOD 60 MG/0.6 ML SYRINGE SC SCH ×2 (05:38→18:02)
[2022-01-02] MEDS: LEVOTHYROXINE SODIUM 50 MCG TAB PO SCH (06:39)
[2022-01-02] MEDS: BUDESONIDE (INHALATION) 0.5 MG/2 ML NEB NEB SCH ×2 (06:55→18:48)
[2022-01-02] MEDS: METOPROLOL TARTRATE 1MG/1ML-5ML VIAL IV PRN (08:29)
[2022-01-02 09:05] VITALS: BP 111/64
[2022-01-02] MEDS: MONTELUKAST SODIUM 10 MG TAB PO SCH (10:18)
[2022-01-02] MEDS: SACUBITRIL-VALSARTAN 24mg/26mg TAB PO SCH ×2 (10:18→21:18)
[2022-01-02] MEDS: METOPROLOL TARTRATE 25 MG TAB PO SCH ×2 (10:18→21:19)
[2022-01-02] MEDS: HYDROcodone-ACET 5/325MG TAB PO PRN (11:29)
[2022-01-02 13:00] VITALS: BP 102/37
[2022-01-02 16:41] VITALS: BP 115/55
[2022-01-02] MEDS: CITALOPRAM HYDROBR 20 MG TAB PO SCH (21:17)
[2022-01-02] MEDS: ATORVASTATIN 20 MG TAB PO SCH (21:18)
[2022-01-02] MEDS: GABAPENTIN 300 MG CAP PO SCH (21:21)
[2022-01-02 22:02] VITALS: BP 83/51
[2022-01-03] MEDS: ALBUTEROL SULF 2.5 MG/0.5ML(0.5%) NEB SOLN NEB SCH ×3 (00:59→11:23)
[2022-01-03] MEDS: IPRATROPIUM BROM 0.5 MG/2.5ML INH SOL NEB SCH ×4 (00:59→11:25)
[2022-01-03] MEDS: ENOXAPARIN SOD 60 MG/0.6 ML SYRINGE SC SCH (04:08)
[2022-01-03 05:11] VITALS: BP 101/54
[2022-01-03] MEDS: FUROSEMIDE 20 MG/2 ML VIAL IV SCH (05:12)
[2022-01-03 05:56] LABS: BUN/Creatinine Ratio 17.7; Calcium 8.1 mg/dL (8.5-10.1); Potassium 3.6 mmol/L (3.5-5.1)
[2022-01-03] MEDS: BUDESONIDE (INHALATION) 0.5 MG/2 ML NEB NEB SCH (06:06)
[2022-01-03] MEDS: LEVOTHYROXINE SODIUM 50 MCG TAB PO SCH (06:14)
[2022-01-03 09:00] VITALS: BP 102/47
[2022-01-03] MEDS: METOPROLOL TARTRATE 25 MG TAB PO SCH (09:08)
[2022-01-03] MEDS: MONTELUKAST SODIUM 10 MG TAB PO SCH (09:09)
[2022-01-03] MEDS: SACUBITRIL-VALSARTAN 24mg/26mg TAB PO SCH (09:10)
[2022-01-03] MEDS ORDERED: METO-6 PO (11:09)
[2022-01-03] MEDS ORDERED: SACU1TAB PO (11:09)
[2022-01-03] MEDS ORDERED: FURO1TAB31 PO (11:19)
[2022-01-03] MEDS ORDERED: APIX5TAB PO (11:20)
[2022-01-03 12:35] VITALS: BP 91/46
[2022-01-03] MEDS ORDERED: APIXABAN 5 MG TAB PO SCH (22:00)
== END 2022-01-03 13:30 | disposition home health service (06) | DRG 291 ==
LOC: EDBD 10:13 → ER 10:13 → EDUNIT# 10:13 → TELE 15:06 → TELE-CENTR 18:16
PROVIDERS: ADMIT Internal Medicine; ATTEND Internal Medicine Geriatric Medicine
DX: I11.0 Hypertensive heart disease with heart failure (principal); I50.43 Acute on chronic combined systolic (congestive) and diastolic (congestive) heart failure; F20.9 Schizophrenia, unspecified; G89.29 Other chronic pain; E03.9 Hypothyroidism, unspecified; F17.210 Nicotine dependence, cigarettes, uncomplicated; J44.9 Chronic obstructive pulmonary disease, unspecified; F32.A Depression, unspecified; M54.9 Dorsalgia, unspecified; I25.10 Atherosclerotic heart disease of native coronary artery without angina pectoris; I48.91 Unspecified atrial fibrillation; Z20.822 Contact with and (suspected) exposure to COVID-19; R53.81 Other malaise; Z82.49 Family history of ischemic heart disease and other diseases of the circulatory system; Z83.3 Family history of diabetes mellitus; Z79.890 Hormone replacement therapy; Z80.1 Family history of malignant neoplasm of trachea, bronchus and lung; Z80.3 Family history of malignant neoplasm of breast; Z80.8 Family history of malignant neoplasm of other organs or systems; Z85.118 Personal history of other malignant neoplasm of bronchus and lung; Z85.819 Personal history of malignant neoplasm of unspecified site of lip, oral cavity, and pharynx; Z90.710 Acquired absence of both cervix and uterus; Z95.0 Presence of cardiac pacemaker; Z79.899 Other long term (current) drug therapy; I25.2 Old myocardial infarction; Z98.51 Tubal ligation status
CPT/HCPCS: 36415; 71045; 80048; 80053; 81001; 83880; 84443; 84484; 85025; 85610; 85730; 87081; 87426; 93005; 93306; 94640; 96372; 96374; 96376; 97163; 99291; G0378